=== PATIENT | female | born 1940 | race Caucasian/White ===

== ENCOUNTER 2018-01-05 10:47 | Day surgery (SDC) | payer OTHER, MEDICARE ==
[2018-01-05 11:32] LABS: Absolute Lymphocytes (CBC) 1.8 K/uL (0.7-4.9); Absolute Monocytes 0.4 K/uL (0.1-1.3); Absolute Neutrophil 4.4 K/uL (1.8-8.0); Basophils % 1.1 % (0-1.3); Eosinophils % 3.3 % (0-4.4); Hematocrit 42.3 % (36.0-45.0); Lymphocytes % 25.8 % (15.3-44.8); MCH 29.2 pg (27.0-35.0); MCV 88.1 fL (80-100); MPV 9.5 fL (7.6-11.3); Monocytes % 6.3 % (3.3-12.3)
--- NOTE | 2018-01-05 11:42 | RAD REPORT ---
EXAM DESCRIPTION: RAD - Chest Pa And Lat (2 Views) - 01/05/2018 11:30 am CLINICAL HISTORY: Flank pain COMPARISON: 02/02/2015, 10/03/2013 TECHNIQUE: PA and lateral views of the chest were obtained. FINDINGS: The lungs are hyperexpanded compatible with COPD. The heart is upper limit of normal in si ze. Aortic atherosclerosis. No fracture or aggressive bony process. IMPRESSION: COPD without acute process identified.
[2018-01-05 11:46] LABS: Protime INR 0.97
[2018-01-05 11:47] LABS: Potassium 4.5 mEq/L (3.6-5.0)
[2018-01-05] MEDS ORDERED: Ringers Lactate 1,000 ML IV ONE (11:57)
[2018-01-05] MEDS ORDERED: GENTAMICIN 80 MG/100 ML BAG 80 MG/100 ML BAG IV ONE (11:57)
[2018-01-05] MEDS ORDERED: LIDOCAINE 2% MPF 5 ML VIAL ONE (12:37)
[2018-01-05] MEDS ORDERED: PROPOFOL 200 MG/20 ML VIAL IV ONE (12:37)
[2018-01-05] MEDS ORDERED: FENTANYL CITR 100 MCG/2 ML ONE (12:37)
[2018-01-05] MEDS ORDERED: MIDAZOLAM HCL 2 MG/2 ML INJ ONE (12:37)
[2018-01-05] MEDS ORDERED: ONDANSETRON 4 MG/2 ML VIAL ONE (12:38)
[2018-01-05] MEDS ORDERED: METHYLPREDNISOLONE 125 MG INJ ONE (12:43)
[2018-01-05] MEDS ORDERED: DIPHENHYDRAMINE 50 MG/ML VIAL ONE (12:43)
--- NOTE | 2018-01-05 14:17 | RAD REPORT ---
EXAM DESCRIPTION: RAD - Urography Retrograde - 01/05/2018 2:05 pm CLINICAL HISTORY: Left-sided stent placement. COMPARISON: None. FINDINGS: Fluoroscopic imaging of the abdomen is submitted from left-sided stent placement attempt. Details of the procedure are not available.
--- NOTE | 2018-01-05 16:27 | EKG ---
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
[2018-01-05 16:55] VITALS: O2SAT 95
[2018-01-05 16:58] VITALS: BP 172/77; TEMP 97.2
== END 2018-01-05 15:30 | disposition home or self-care (01) ==
LOC: OR 10:47
PROVIDERS: ATTEND Urology
PROC: 0T778ZZ Dilation of Left Ureter, Via Natural or Artificial Opening Endoscopic (ICD-10-PCS; principal; 2018-01-05 13:00)
DX: N20.1 Calculus of ureter (principal); Q62.39 Other obstructive defects of renal pelvis and ureter; N32.81 Overactive bladder; N20.0 Calculus of kidney; I10 Essential (primary) hypertension; E78.00 Pure hypercholesterolemia, unspecified; J44.9 Chronic obstructive pulmonary disease, unspecified; M81.0 Age-related osteoporosis without current pathological fracture; I73.9 Peripheral vascular disease, unspecified; Z86.73 Personal history of transient ischemic attack (TIA), and cerebral infarction without residual deficits; Z87.891 Personal history of nicotine dependence; Z90.49 Acquired absence of other specified parts of digestive tract; Z90.710 Acquired absence of both cervix and uterus; Z88.6 Allergy status to analgesic agent; Z88.0 Allergy status to penicillin; Z88.3 Allergy status to other anti-infective agents; Z91.040 Latex allergy status; Z79.82 Long term (current) use of aspirin
CPT/HCPCS: 36415; 52344; 71046; 74420; 80048; 85025; 85610; 85730; 86850; 86900; 86901; 93005; J1580; J2405; J2930; J3010; Q9967; J2250

== ENCOUNTER 2018-09-20 11:52 | Emergency (ER) | payer OTHER, MEDICARE ==
--- NOTE | 2018-09-20 16:19 | ER ---
Nurse's Notes [facility] Name: Prema Massey Age: 78 yrs Sex: Female : 1940 Arrival Date: 09/20/2018 Time: 11:55 Bed 15 Private MD: Shelton Veliz V Diagnosis: Ankle Swelling s/p stent placement Presentation: 09/20 12:00 Presenting complaint: Patient states: my R foot and ankle is swollen and pain and in hj the back of my R knee; i had a stent procedure on R leg last Sep 17 at [facility] in [place]; reports pain on the site; 10/31;. Transition of care: patient was not received from another setting of care. Onset of symptoms was September 20, 2018. Risk Assessment: Do you want to hurt yourself or someone else? Patient reports no desire to harm self or others. Initial Sepsis Screen: Does the patient meet any 2 criteria? No. Patient's initial sepsis screen is negative. Does the patient have a suspected source of infection? No. Patient's initial sepsis screen is negative. Care prior to arrival: None. 12:00 Method Of Arrival: Ambulatory 12:00 Acuity: ANNALISA 4 hj Triage Assessment: 12:05 General: Appears in no apparent distress. uncomfortable, Behavior is calm, cooperative, hj appropriate for age. Pain: Complains of pain in right leg. Historical: - Allergies: 12:05 Sulfa (Sulfonamide Antibiotics); hj 12:05 Iodine; hj 12:05 Codeine; hj - Home Meds: 12:05 rosuvastatin 5 mg oral tab 1 tab once daily [Active]; losartan 100 mg oral tab 1 tab hj once daily [Active]; oxybutynin chloride 10 mg Oral tr24 1 tab once daily [Active]; potassium chloride 10 mEq Oral cpER 1 cap once daily [Active]; Spiriva with HandiHaler inhalation inhalation [Active]; - PMHx: 12:05 Hypertension; hj - PSHx: 12:05 stents in legs; Hysterectomy; Cholecystectomy; hj - Immunization history:: Adult Immunizations up to date. - Social history:: Smoking status: Patient/guardian denies using tobacco, Patient/guardian denies using alcohol. - Ebola Screening: : Patient negative for fever greater than or equal to 101.5 degrees Fahrenheit, and additional compatible Ebola Virus Disease symptoms Patient denies exposure to infectious person Patient denies travel to an Ebola-affected area in the 21 days before illness onset. Screenin:05 Abuse screen: Denies threats or abuse. Denies injuries from another. Nutritional hj screening: No deficits noted. Tuberculosis screening: No symptoms or risk factors identified. Fall Risk None identified. Assessment: 13:44 General: Appears in no apparent distress. uncomfortable, Behavior is calm, cooperative, jl7 appropriate for age. Pain: Complains of pain in right leg Pain currently is 2 out of 10 on a pain scale. Neuro: Level of Consciousness is awake, alert, obeys commands, Oriented to person, place, time, situation. Cardiovascular: Denies chest pain, Patient's skin is warm and dry. Pulses are palpable in right dorsalis pedis artery and left dorsalis pedis artery. Respiratory: Airway is patent Respiratory effort is even, unlabored, Respiratory pattern is regular, symmetrical, Denies shortness of breath. Derm: Skin is pink, warm \T\ dry. 15:12 Reassessment: Patient appears in no apparent distress at this time. No changes from jl7 previously documented assessment. Patient and/or family updated on plan of care and expected duration. Pain level reassessed. Patient is alert, oriented x 3, equal unlabored respirations, skin warm/dry/pink. Vital Signs: 12:05 BP 176 / 56; Pulse 95; Resp 18; Temp 97.9(TE); Pulse Ox 100% on R/A; Weight 48.99 kg; hj Height 5 ft. 3 in. (160.02 cm); Pain 2/10; 13:44 BP 132 / 81; Pulse 82; Resp 16 S; Pulse Ox 100% on R/A; Pain 2/10; jl7 15:12 BP 132 / 83; Pulse 85; Resp 16 S; Pulse Ox 98% on R/A; jl7 16:32 BP 128 / 58; Pulse 71; Resp 16 S; Pulse Ox 100% on R/A; jl7 12:05 Body Mass Index 19.13 (48.99 kg, 160.02 cm) ED Course: 11:55 Patient arrived in ED. mr 11:55 Shelton Veliz MD is Private Physician. mr 12:02 Triage completed. 12:05 Arm band placed on right wrist. hj 12:05 Patient has correct armband on for positive identification. Placed in gown. Bed in low hj position. Call light in reach. Side rails up X 1. 13:32 Vera Garcia FNP-C is [facility]. kb 13:32 Sourav Dietrich MD is Attending Physician. kb 13:36 Ben Rob, RN is Primary Nurse. jl7 14:41 US Extremity Venous Unilateral Ltd In Process Unspecified. EDMS 14:49 Ultrasound completed. Patient tolerated well. lc3 16:31 No provider procedures requiring assistance completed. Patient did not have IV access jl7 during this emergency room visit. Administered Medications: No medications were administered Outcome: 16:19 Discharge ordered by . kb 16:31 Discharged to home ambulatory. jl7 16:31 Condition: stable 16:31 Discharge instructions given to patient, Instructed on discharge instructions, follow up and referral plans. Demonstrated understanding of instructions, follow-up care. 16:35 Patient left the ED. jl7 Signatures: Dispatcher [employer] EDMO Vera Garcia FNP-C FNP-Miguel Angel GregorioCamille mr Cj Robbins, RN RN Jonathan Benitez [facility] Ben Rob, RN RN jl7 Corrections: (The following items were deleted from the chart) 12:08 12:05 Pulse 95bpm; Resp 18bpm; Pulse Ox 100% RA; Temp 97.9F Temporal; 48.99 kg; Height hj 5 ft. 3 in.; BMI: 19.1; Pain 2/10; hj
--- NOTE | 2018-09-20 16:19 | EDPHYS ---
Physician Documentation [facility] Name: Prema Massey Age: 78 yrs Sex: Female : 1940 Arrival Date: 09/20/2018 Time: 11:55 Bed 15 Private MD: Shelton Veliz V ED Physician Sourav Dietrich HPI: 09/20 16:03 This 78 yrs old Female presents to ER via Ambulatory with complaints of Leg kb Swelling, Leg Pain. 16:03 The patient presents with swelling. The complaints affect the right ankle. Onset: The kb symptoms/episode began/occurred 4 day(s) ago. Context: The problem was sustained at home, resulted from stent placed in right leg on 09/17 for arterial occlusion, The patient can fully bear weight on the affected extremity. the patient is able to ambulate. Associated signs and symptoms: Pertinent positives: swelling, Pertinent negatives: calf tenderness, fever, nausea, numbness, rash, tingling, vomiting, warmth, weakness. Modifying factors: The symptoms are alleviated by elevation of extremity, the symptoms are aggravated by nothing. Severity of symptoms: At their worst the symptoms were moderate, in the emergency department the symptoms are unchanged. The patient has not experienced similar symptoms in the past. The patient has been recently seen by a physician:. Historical: - Allergies: 12:05 Sulfa (Sulfonamide Antibiotics); hj 12:05 Iodine; hj 12:05 Codeine; hj - Home Meds: 12:05 rosuvastatin 5 mg oral tab 1 tab once daily [Active]; losartan 100 mg oral tab 1 tab hj once daily [Active]; oxybutynin chloride 10 mg Oral tr24 1 tab once daily [Active]; potassium chloride 10 mEq Oral cpER 1 cap once daily [Active]; Spiriva with HandiHaler inhalation inhalation [Active]; - PMHx: 12:05 Hypertension; hj - PSHx: 12:05 stents in legs; Hysterectomy; Cholecystectomy; hj - Immunization history:: Adult Immunizations up to date. - Social history:: Smoking status: Patient/guardian denies using tobacco, Patient/guardian denies using alcohol. - Ebola Screening: : Patient negative for fever greater than or equal to 101.5 degrees Fahrenheit, and additional compatible Ebola Virus Disease symptoms Patient denies exposure to infectious person Patient denies travel to an Ebola-affected area in the 21 days before illness onset. ROS: 16:01 Constitutional: Negative for fever, chills, and weight loss, Cardiovascular: Negative kb for chest pain, palpitations, and edema, Respiratory: Negative for shortness of breath, cough, wheezing, and pleuritic chest pain, Abdomen/GI: Negative for abdominal pain, nausea, vomiting, diarrhea, and constipation, Skin: Negative for injury, rash, and discoloration, Neuro: Negative for headache, weakness, numbness, tingling, and seizure. 16:01 MS/extremity: Positive for swelling, of the anterior aspect of right ankle. Exam: 16:01 Constitutional: This is a well developed, well nourished patient who is awake, alert, kb and in no acute distress. Head/Face: Normocephalic, atraumatic. Chest/axilla: Normal chest wall appearance and motion. Nontender with no deformity. No lesions are appreciated. Cardiovascular: Regular rate and rhythm with a normal S1 and S2. No gallops, murmurs, or rubs. Normal PMI, no JVD. No pulse deficits. Respiratory: Lungs have equal breath sounds bilaterally, clear to auscultation and percussion. No rales, rhonchi or wheezes noted. No increased work of breathing, no retractions or nasal flaring. Abdomen/GI: Soft, non-tender, with normal bowel sounds. No distension or tympany. No guarding or rebound. No evidence of tenderness throughout. Neuro: Awake and alert, GCS 15, oriented to person, place, time, and situation. Cranial nerves II-XII grossly intact. Motor strength 5/5 in all extremities. Sensory grossly intact. Cerebellar exam normal. Normal gait. 16:01 Musculoskeletal/extremity: Extremities: noted in the anterior aspect of right ankle: swelling, ROM: intact in all extremities, Circulation is intact in all extremities. Sensation intact. Weight bearing: able to fully bear weight. 16:01 Skin: Appearance: normal except for affected area, ecchymosis, noted on the, left femoral area, that are moderate. Vital Signs: 12:05 BP 176 / 56; Pulse 95; Resp 18; Temp 97.9(TE); Pulse Ox 100% on R/A; Weight 48.99 kg; hj Height 5 ft. 3 in. (160.02 cm); Pain 2/10; 13:44 BP 132 / 81; Pulse 82; Resp 16 S; Pulse Ox 100% on R/A; Pain 2/10; jl7 15:12 BP 132 / 83; Pulse 85; Resp 16 S; Pulse Ox 98% on R/A; jl7 16:32 BP 128 / 58; Pulse 71; Resp 16 S; Pulse Ox 100% on R/A; jl7 12:05 Body Mass Index 19.13 (48.99 kg, 160.02 cm) MDM: 13:33 Patient medically screened. kb 16:04 Data reviewed: vital signs, nurses notes. Data interpreted: Pulse oximetry: on room air kb is 98 %. Interpretation: normal. 16:17 Counseling: I had a detailed discussion with the patient and/or guardian regarding: the kb historical points, exam findings, and any diagnostic results supporting the discharge/admit diagnosis, radiology results, the need for outpatient follow up, a family practitioner, to return to the emergency department if symptoms worsen or persist or if there are any questions or concerns that arise at home. 09/20 13:36 Order name: US Extremity Venous Unilateral Ltd; Complete Time: 16:33 kb Administered Medications: No medications were administered Disposition: 09/21 15:48 Co-signature as Attending Physician, Sourav Dietrich MD I agree with the assessment and kdr plan of care. Disposition: 09/20/18 16:19 Discharged to Home. Impression: Ankle Swelling s/p stent placement. - Condition is Stable. - Discharge Instructions: Edema, [id number]. - Medication Reconciliation Form, Thank You Letter, Antibiotic Education, Prescription Opioid Use form. - Follow up: Emergency Department; When: As needed; Reason: Worsening of condition. Follow up: Private Physician; When: 2 - 3 days; Reason: Recheck today's complaints, Continuance of care, Re-evaluation by your physician. Signatures: Dispatcher [employer] EDMS Vera Garcia, BANKRUPTCY PARALEGAL-C BANKRUPTCY PARALEGAL-Sourav Oliavrez MD MD [facility] Cj Robbins RN RN hj Leal, Jahala, RN RN jl7 Corrections: (The following items were deleted from the chart) 09/20 16:35 16:19 09/20/2018 16:19 Discharged to Home. Impression: Ankle Swelling s/p stent jl7 placement. Condition is Stable. Forms are Medication Reconciliation Form, Thank You Letter, Antibiotic Education, Prescription Opioid Use. Follow up: Emergency Department; When: As needed; Reason: Worsening of condition. Follow up: Private Physician; When: 2 - 3 days; Reason: Recheck today's complaints, Continuance of care, Re-evaluation by your physician. kb
--- NOTE | 2018-09-20 16:30 | RAD REPORT ---
EXAM DESCRIPTION: US - Extremity Venous Uni Ltd - 09/20/2018 2:41 pm CLINICAL HISTORY: Right leg pain and swelling Preliminary findings provided at the time of the study. COMPARISON: None. TECHNIQUE: Real-time sonographic evaluation of the right lower extremity deep venous systems was per formed. FINDINGS: Normal compressibility, flow augmentation, phasic flow and spontaneous flow are identified in the right lower extremity common femoral, superficial femoral, popliteal and posterior tibial vei ns. No intraluminal filling defects seen. IMPRESSION: No DVT in the right lower extremity.
[2018-09-20 16:49] VITALS: TEMP 97.9
[2018-09-20 16:53] VITALS: BP 128/58; O2SAT 100
== END 2018-09-20 16:35 | disposition home or self-care (01) ==
LOC: ER 11:52
DX: M25.471 Effusion, right ankle (principal); I10 Essential (primary) hypertension; Z88.2 Allergy status to sulfonamides; Z88.5 Allergy status to narcotic agent; Z91.048 Other nonmedicinal substance allergy status
CPT/HCPCS: 93971; 99283

== ENCOUNTER 2019-05-20 06:28 | Day surgery (SDC) | payer OTHER, MEDICARE ==
--- NOTE | 2019-05-18 09:13 | RAD REPORT ---
EXAM DESCRIPTION: Diony Urbina And Lat (2 Views)05/18/2019 9:01 am CLINICAL HISTORY: Hypertension/preop exam for vein surgery COMPARISON: December 2017 FINDINGS: 13 millimeter nodular opacity right upper lobe. Remaining lungs appear clear of acute infiltrate. The lungs are moderately hyperaerated. Heart is nor mal size. Calcification of the mitral annulus is noted IMPRESSION: COPD 13 millimeter nodular opacity right upper lobe may represent a pulmonary nodule. CT chest recommende d
[2019-05-18 09:55] LABS: Absolute Lymphocytes (CBC) 1.5 K/uL (0.7-4.9); Basophils % 1.2 % (0-1.3); Hematocrit 41.6 % (36.0-45.0); Lymphocytes % 25.2 % (15.3-44.8); RBC Red Blood Cell Count 4.67 M/uL (3.86-4.86)
[2019-05-18 10:07] LABS: Potassium 4.5 mmol/L (3.5-5.1)
[2019-05-20] MEDS ORDERED: CEFAZOLIN/SWI 1gm 1 GM/10 ML SYR ONE (06:50)
[2019-05-20] MEDS ORDERED: Ringers Lactate 1,000 ML IV ONE (06:50)
[2019-05-20] MEDS ORDERED: PROPOFOL 200 MG/20 ML VIAL IV ONE (07:15)
[2019-05-20] MEDS ORDERED: FENTANYL CITR 100 MCG/2 ML ONE (07:15)
[2019-05-20] MEDS ORDERED: MIDAZOLAM HCL 2 MG/2 ML INJ ONE (07:16)
[2019-05-20] MEDS ORDERED: LIDOCAINE 1% MPF 5 ML VIAL ONE (07:16)
[2019-05-20] MEDS ORDERED: Phenylephrine HCl 10 MG/ML 1 ML VIAL ONE (07:46)
[2019-05-20] MEDS ORDERED: NS 0.9% VIAL 10 ML ONE (07:46)
[2019-05-20] MEDS ORDERED: KETOROLAC 30 MG/ML INJ ONE (07:54)
[2019-05-20] MEDS ORDERED: ONDANSETRON 4 MG/2 ML VIAL ONE (07:54)
[2019-05-20 09:31] VITALS: TEMP 97.7
[2019-05-20 10:26] VITALS: BP 124/74; O2SAT 94
--- NOTE | 2019-05-20 20:44 | OP ---
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 Postoperative Diagnosis: Left leg squamous cell carcinoma. Procedure: Wide excision, left leg squamous cell carcinoma 6 x 2 cm with layered closure. Length of closure 6 cm. Estimated Blood Loss: Minimal. Specimen: Left leg squamous cell carcinoma. Findings: Margins free. Anesthesia: General. Complications: None. Disposition: The patient tolerated the procedure in stable condition, taken to Recovery in good gene ral condition. Procedure In Detail: The patient was brought to the OR and placed in supine position. General anest hesia begun. Patient was prepped and draped in the usual sterile fashion. Marcaine 0.5% was infiltr ated locally. A 15-blade was used to make a 6 x 2 cm incision to include this 1.75 cm red lesion wit h a scab in the middle consistent with the biopsy site and squamous cell carcinoma. This proceeded d own through the subcutaneous tissue. The entire specimen excised and then labeled appropriately and sent for frozen section which revealed squamous cell carcinoma. Margins free. Wound irrigated, blee ding controlled with cautery. Flaps created and then 2-0 chromic used to approximate the subcutaneou s tissue and 3-0 nylon used to close skin. Sterile dressing was applied. The patient was awakened a nd taken to Recovery in good general condition. Discharge Note: Patient will go to Day Surgery and home when stable. Disposition: Home. Condition: Stable. Discharge Instructions: Resume home medications and diet. Activity as tolerated. No heavy lifting. Keep dressing clean and dry. Sponge bathe only. Follow up in my office in 1 week. Call for appoi ntment. Ultracet 1 tablet p.o. q.4 p.r.n. pain. Patient will have a CT of the chest with IV contras t and we will premedicate her with prednisone and Benadryl prior to the office visit. /MODL Voice ID: [id number] Report ID: [id number]
--- NOTE | 2019-05-22 08:12 | EKG ---
Test Date: 2019-05-20 Test Time: 07:21:41 Laundry Pricing Clerk: BELA MEASUREMENT RESULTS: Intervals: Rate: 89 TX: 136 QRSD: 78 QT: 358 QTc: 435 [place]: P: 78 TX: 136 QRS: 66 T: 66 INTERPRETIVE STATEMENTS: Normal sinus rhythm Biatrial enlargement Left ventricular hypertrophy ST abnormality, possible digitalis effect Abnormal ECG Compared to ECG 01/05/2018 11:29:04 ST (T wave) deviation now present Electronically Signed On 05-22-19 08:07:43 CDT by Denys Wiseman
== END 2019-05-20 10:15 | disposition home or self-care (01) ==
LOC: OR 06:28
PROVIDERS: ATTEND Surgery
PROC: 0HBLXZZ Excision of Left Lower Leg Skin, External Approach (ICD-10-PCS; principal; 2019-05-20 07:30)
DX: C44.729 Squamous cell carcinoma of skin of left lower limb, including hip (principal); I10 Essential (primary) hypertension; I25.10 Atherosclerotic heart disease of native coronary artery without angina pectoris; J44.9 Chronic obstructive pulmonary disease, unspecified; Z87.891 Personal history of nicotine dependence; Z86.73 Personal history of transient ischemic attack (TIA), and cerebral infarction without residual deficits; Z88.6 Allergy status to analgesic agent; Z88.2 Allergy status to sulfonamides; Z88.3 Allergy status to other anti-infective agents; Z91.040 Latex allergy status; Z80.41 Family history of malignant neoplasm of ovary
CPT/HCPCS: 93005; 85025; 80048; 36415; 88331; 88332; 88305; 71046; 11606; J2704; J2370; J3010; J0690; J2405; J2250

== ENCOUNTER 2021-03-18 02:40 | Emergency (ER) | payer OTHER ==
--- OUTSIDE RECORDS SUMMARY | 2021-03-18 02:44 | XMS REPORT | Continuity of Care Document ---
:1940 Author Organization [facility] t Address [address] [place] [address] Care Team Providers Name Role Phone Rambo RAMIREZ Primary Care Physician Unavailable SYSTEM, NOT IN Attending Clinician Unavailable Rambo RAMIREZ Attending Clinician Unavailable Rambo Velasquez MD Attending Clinician Stevie Schofield MD Attending Clinician Senait Nuñez MD Attending Clinician Vaughn Edwards NP Attending Clinician Malcolm MORRIS Attending Clinician Agus Olea MD Attending Clinician MD AGUS OLEA Attending Clinician Unavailable Loy VALENZUELA Attending Clinician Unavailable Maurizio ACE Attending Clinician Unavailable Dontrell RN Attending Clinician Unavailable Bushra VALENUZELA Attending Clinician Unavailable Trevor MORRIS Attending Clinician Azucena ACE Attending Clinician Unavailable Jake MORRIS, Y.H. Attending Clinician MD JAKE Y.H. Attending Clinician Unavailable Magali Camarena NP Attending Clinician Rambo De La Fuente MD Attending Clinician New Angulo MD Attending Clinician MD NEW ANGULO Attending Clinician Unavailable Sergey Attending Clinician Unavailable Michael Marrero RN Attending Clinician Unavailable Bret ACE Attending Clinician Unavailable Provider Attending Clinician Bautista ACE Attending Clinician Unavailable Rambo Ramirez MD Attending Clinician Emmanuel VALENZUELA, G Attending Clinician Unavailable EVA Admitting Clinician Unavailable MD AGUS OLEA Admitting Clinician Unavailable MD Mark STANLEYHKaci Admitting Clinician Unavailable LEISA Admitting Clinician Unavailable MD Rambo DE LA FUENTE Admitting Clinician Unavailable Payers Payer Name Policy Type Policy Number Effective Date Expiration Date Miguel Angel daniel MEDICARE PART A [id number] 2007 AND B 00:00:00 AARP-SECONDARY [id number] 2008 ONLY 00:00:00 UHC MEDICAREUHC [id number] 2020 [place] GROUP MEDICARE 00:00:00 Shinto [id number]-[id number] Problems Condition Condition Condition Status Onset Resolution Last Treating Co mments Source Name Details Category Date Date Treatment Clinician Date Emphysema Emphysema Disease Active Ragini ston of lung of lung 4-23 Methodi 00:00: st 00 Nonrheumat Nonrheumat Disease Active Overview : [place]ulu ic aortic ic aortic 3-23 Formattin M ethodi valve valve 00:00: g of this st stenosis stenosis 00 note might be different from the original. Added automatic ally from request for surgery [id number] Peripheral Peripheral Disease Active H kathy vascular vascular 3-11 Method i disease disease 00:00: st 00 Critical Critical Disease Active [place] on aortic aortic 3-11 Methodi valve valve 00:00: st stenosis stenosis 00 Malignant Malignant Disease Active 2019-09 Overview: [place]ulu neoplasm neoplasm 1-12 Formattin Met hodi of lower of lower 00:00: g of this st lobe of lobe of 00 note right lung right lung might be different from the original. Added automatic ally from request for surgery [id number] Pneumothor Pneumothor Disease Active 2019-09 H kathy ax after ax after 0-30 Method i biopsy biopsy 00:00: st 00 Right Right Disease Active 2019-09 Lulu lower lobe lower lobe 0-29 Me thodi lung mass lung mass 00:00: st 00 Estrogen Estrogen Disease Active Overview: receptor receptor 2-11 Formattin And erso positive positive 00:00: g of this n status status 00 note (ER+) (ER+) might be different from the original. 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 Dr. Martinez Caputo Allergies, Adverse Reactions, Alerts Allergy Allergy Status Severity Reaction(s) Onset Inactive Treating Comm ents Source Name Type Date Date Clinician Bacitrac Propensi Active GI 2018-09 Severe [place] in ty to Intolerance 0-17 rash/peel Me thodi adverse 00:00: ing/burni st reaction 00 ng s to drug Bacitrac Propensi Active GI 2018-09 Severe [place] in-Polym ty to Intolerance 0-17 rash/peel Methodi yxin B adverse 00:00: ing/burni st reaction 00 ng s to drug Latex, Propensi Active Itching, "raw [place] Natural ty to Other (See 5-21 skin" Metho di Rubber adverse Comments) 00:00: st reaction 00 s to drug Codeine Propensi Active Anaphylaxis, 2017 [place] ty to Hives 1-20 Methodi adverse 00:00: st reaction 00 s to drug Iodinate Propensi Active Anaphylaxis, 2016-09 [place] d ty to Hives 1-20 Methodi Contrast adverse 00:00: st Media reaction 00 s to drug Family History Family Member Diagnosis Comments Start Date Stop Date Source Natural father Other MD Hemanth robertson Maternal aunt -Unknown cancer And erson Maternal aunt -Breast cancer Andrés rson Natural mother Ovarian cancer And erson Paternal aunt Skin cancer MD Hemanth robertson Paternal grandfather Coronary artery Vince disease Social History Social Habit Start Date Stop Date Quantity Comments [facility] Std Drinks History SDOH [place] Meth odist Alcohol Binge Cigarettes smoked 2021-02-22 2021-02-22 Fernando Booker current (pack per 00:00:00 00:00:00 day) - Reported Cigarette 2021-02-22 2021-02-22 Fernando Garvey ist pack-years 00:00:00 00:00:00 Tobacco use and 2021-02-22 2021-02-22 Never used Fernando Vivas ethodist exposure 00:00:00 00:00:00 Alcohol intake 2021-02-22 2021-02-22 Ex-drinker Fernando Palomares thodist 00:00:00 00:00:00 (finding) History SDOH 2020-08-02 2020-08-02 1 Fernando Valera odist Alcohol Frequency 00:00:00 00:00:00 Tobacco Comment 2017-08-10 2017-08-10 quit 2009 MD Paiz on 00:00:00 00:00:00 History of tobacco 1961-09-21 2008-12-16 Current smoker Seymour mello Shinto use 00:00:00 00:00:00 [birth year] Fernando dubois 00:00:00 00:00:00 Smoking Status Start Date Stop Date Source Former smoker 2021-02-22 00:00:00 2021-02-22 00:00:00 Fernando Booker Medications Ordered Filled Start Stop Current Ordering Indication Dosage Frequency Signature Comments Components Source Medication Medication Date Date Medication? Clinician (SIG) Name Name aspirin 162mg Take 2 [place] (ECOTRIN) -26 05-26 tablets Method i 81 MG 00:00: 23:59 ([address] enteric 00 :00 total) by coated mouth tablet Every Thursday, Thursday, and Thursday for 30 days. aspirin No 81mg Take 81 mg Ragini ston (ECOTRIN) 4-24 04-24 by mouth. Meth janett 81 MG 12:08: 00:[address] enteric 08 :00 week coated (M/W/F) tablet albuterol 2021-0 2021- No 2{puff} Q6H Inhale 2 [place]ulu (PROAIR 4-24 04-24 puffs Methodi HFA) 90 12:08: 00:[address] mcg/actuati 08 :00 (six) on inhaler hours as needed. turmeric Yes [place]ulu (CURCUMIN 4-24 Methodi MISC) 12:08: st 04 phenylephri Yes Take by Ragini de luna ne 4-24 mouth. Methodi HCl/acetami 12:08: st nophn 04 (DAYTIME SINUS ORAL) Lactobac Yes Take by Becca robertson no.41/Bifid 4-24 mouth. Method i obact no.7 12:08: st (PROBIOTIC- 04 10 ORAL) calcium Yes QD Take by Fernando carb/vitami 4-24 mouth Alex n D3/vit K1 12:08: daily. st (VIACTIV 04 ORAL) vit A-vit Yes Take by Rosalinda on C-vit 4-24 mouth. Methodi E-zinc-stan 12:08: st er (EYE 04 VITAMIN AND MINERALS) 7,160-113-1 00 unit-mg-uni t tablet rosuvastati 2020- No 5mg QD Take 1 Ragini annamarie n (CRESTOR) -24 05-24 tablet (5 Me thodi 5 mg tablet 00:00: 23:59 mg total) st 00 :00 by mouth nightly for 30 days. isosorbide 2020- No 30mg QD Take 1 [place] mononitrate 24 05-24 tablet (30 M ethodi (IMDUR) 30 00:00: 23:59 mg total) s t MG 24 hr 00 :00 by mouth tablet daily for 30 days. nitroglycer 2020- No .4mg Place 1 [place] in -24 05-24 tablet Methodi (Nitrostat) 00:00: 23:59 (0.[address] 0.4 MG SL 00 :00 total) tablet under the tongue every 5 (five) minutes as needed for chest pain for up to 30 days. predniSONE 0 202- No 40mg QD Take 2 [place] (DELTASONE) 3-12 03-14 tablets Meth janett 20 mg 00:00: 23:59 ([address] tablet 00 :00 total) by mouth daily for 2 doses. Take 2 tablets (40 mg) by mouth at 9 pm the night prior to CT Scan and take 2 tablets (40 mg) by mouth [address] Scan. umeclidiniu 2020- No Inhale. Seymour mello m-vilantero 3-11 03-11 Methodi l (ANORO 15:53: 00:00 st ELLIPTA) 55 :00 62.5-25 mcg/actuati on blister with device diosmin 2019-09- No Take by [place] complex 0-08 10-08 mouth. Methodi no.1 10:58: 00:00 st (VASCULERA) 35 :00 630 mg tablet Prolia 60 2019-09- No King mg/mL 006-28 Methodi syringe 00:00: 00:00 st syringe 00 :00 Trelegy 2019-0 Yes King Ellipta 9-03 Methodi 100-62.5-25 00:00: st mcg blister 00 with device powder for inhalation losartan 2020- No 100mg QD 100 mg [place] (COZAAR) 04-1711 daily. Methodi 100 MG 00:00: 00:00 st tablet 00 :00 fluticasone 2019- Yes 1{puff} Inhale 1 MD /umeclidin/ 7-13 puff by Josh so vilanter 17:04: mouth n (TRELEGY 02 daily. ELLIPTA INHALATION) clopidogrel 2019-0 Yes 75mg Take 75 mg MD (PLAVIX) 75 7-13 by mouth Andrés rso mg tablet 17:04: daily. n 02 b complex 2020-0 Yes 1{tbl} Take 1 MD vitamins 7-13 tablet by Chencho o tablet 17:03: mouth n 04 daily. TURMERIC 2020-0 Yes 500mg 500 mg by MD (CURCUMIN 7-13 miscellane Andrés rso MISC) 17:03: ous route n 04 daily. HORSE 2020-0 Yes 400mg Take 400 MD CHESTNUT 7-13 mg by Anderso SEED (HORSE 17:03: mouth n CHESTNUT 04 daily. ORAL) aspirin 81 2020-0 Yes 81mg Take 81 mg M D mg EC 7-13 by mouth 2 Anderso tablet 17:03: (two) n 04 times a week MTH. Lactobacill 2020-0 Yes 1{capsu Take 1 M D us 7-13 le} capsule by Anderssenia rhamnosus 17:03: mouth n GG 04 daily. (CULTURELLE ) 10 billion cell capsule CALCIUM 2020-0 Yes 1{tbl} Take 1 MD CARB/VITAMI 7-13 tablet by And erso N D3/VIT K1 17:03: mouth n (VIACTIV 04 twice ORAL) daily. acetaminoph 2020-0 Yes 500mg Take 500 M D en (TYLENOL 7-13 mg by Anderso EXTRA 17:03: mouth as n STRENGTH) 04 needed for 500 mg mild pain. tablet vitamins 2020-0 Yes 1{capsu Take 1 MD A,C,E-zinc- 7-13 le} capsule by An derso copper 17:03: mouth n (ICAPS 04 twice AREDS) daily. 14,320-226- 200 unit-mg-uni t cap UNABLE TO 2020-0 Yes 1{capsu Take 1 MD FIND 7-13 le} capsule by Anderso 17:03: mouth n 04 daily. Multi-prob iotic sinus support UNABLE TO 2020-0 2020- No 2{capsu Take 2 MD FIND 7-13 07-13 le} capsules Anderso 17:03: 00:00 by mouth n 00 :00 daily. Mitochondr ial Energy Booster (obtained form PCP) olmesartan 2018-09 2020- No 40mg QD Take 40 mg King (BENICAR) 0-15 10-08 by mouth Metho di 40 MG 00:00: 00:[address] tablet 00 :00 amLODIPine 2018-09 2020- No [place] (NORVASC) 0-09 10-08 Methodi 2.5 mg 00:00: 00:00 st tablet 00 :00 escitalopra 2019- Yes 10mg QD Take 10 mg King m (LEXAPRO) 9-27 by mouth Meth janett 10 MG 00:00: daily. st tablet 00 MYRBETRIQ Yes 50mg Take 50 mg MD 50 mg Tb24 9-17 by mouth Josh so 00:00: daily. n 00 MYRBETRIQ 2019- Yes 50mg QD 50 mg King 50 mg 9-17 daily. Methodi tablet 00:00: st extended 00 release 24 hr ANORO 2019- No 1{puff} Inhale 1 MD ELLIPTA 06-02-13 puff by Anderso 62.5-25 00:00: 00:00 mouth n mcg/actuati 00 :00 daily. on dsdv clopidogrel 2020- No 75mg QD Take 75 mg King (PLAVIX) 75 05-2724 by mouth Met hodi mg tablet 00:00: 00:[address] 00 :00 escitalopra 2019- No 10mg Take 10 mg MD m (LEXAPRO) 05-27 by mouth And erso 10 mg 00:00: 00:00 daily. n tablet 00 :00 amLODIPine Yes 2.5mg Take 2.5 MD (NORVASC) 7-15 mg by Anderso 2.5 mg 00:00: mouth n tablet 00 daily. losartan Yes 100mg Take 100 MD (COZAAR) 1-14 mg by Anderso 100 mg 00:00: mouth n tablet 00 daily. fluocinolon 2016-09 Yes 1[drp] Administer MD e acetonide 0-23 1 drop Chencho o oil 0.01 % 00:00: into ears n drop 00 as needed. SPIRIVA 2019- No 1{puff} Inhale 1 MD WITH 06-18-13 puff by Andcalos HANDIHALER 00:00: 00:00 mouth as n 18 mcg 00 :00 needed. inhalation capsule rosuvastati 2020- No 1{tbl} Take 1 [place] n (CRESTOR) 06-1624 tablet by Me thodi 5 MG tablet 00:00: 00:[address] 00 :00 rosuvastati 2019- No 1{tbl} Take 1 M D n (CRESTOR) 06-16-13 tablet by An derso 5 mg tablet 00:00: 00:00 mouth 2 n 00 :00 (two) times a week MTH. potassium Yes 1{tbl} Take 1 MD chloride 8-29 tablet by Chencho o (K-DUR,KLOR 00:00: mouth n -CON M) 10 00 twice mEq tablet daily. PROAIR HFA Yes 1{puff} Inhale 1 MD 90 8-01 puff by Anderso mcg/actuati 00:00: mouth as n on inhaler 00 needed. Immunizations Ordered Immunization Filled Immunization Date Status Commen ts Source Name Name PABLO SADLERID-Sixto 2020-10-26 Completed [place] MRNA VACCINATION 00:00:00 Methodmadonna SHAH COVID-19 2020-09-28 Completed [place] MRNA VACCINATION 00:00:00 [place] ana FLUZONE HIGH-DOSE PF 2020-07-20 Completed [place] 00:00:00 Shinto Vital Signs Vital Name Observation Time Observation Value Comments Source Heart rate 2021-01-12 09:42:00 84 /min Fernando Booker Respiratory rate 2021-01-12 09:42:00 20 /min Ilene Booker Oxygen saturation in 2021-01-12 09:42:00 95 /min Fernando Booker Arterial blood by Pulse oximetry Systolic blood 2021-01-12 07:17:13 101 mm[Hg] [place] Shinto pressure Diastolic blood 2021-01-12 07:17:13 60 mm[Hg] [place] on Shinto pressure Body temperature 2021-01-12 07:17:13 37 Azra Ilene Booker Body weight 2021-01-10 05:00:00 51.347 kg Fernando Booker BMI 2021-01-10 05:00:00 20.06 kg/m2 Fernando Booker Body height 2021-01-01 09:30:00 160 cm Fernando Booker Procedures Procedure Date / Time Performing Clinician Source Performed HC COMPLETE BLD COUNT 2021-01-10 04:30:00 Lara Chery W/AUTO DIFF BASIC METABOLIC PANEL 2021-01-10 04:00:00 Lara Chery TROPONIN 2021-01-10 04:00:00 Lara Chery ethodist MAGNESIUM LEVEL 2021-01-10 04:00:00 Lara Chery ethodist PHOSPHORUS LEVEL 2021-01-10 04:00:00 Lara Chery ESTIMATED GFR 2021-01-10 04:00:00 Lara Chery ethodist ECG 12-LEAD 2021-01-09 23:41:28 Stevie Velasquez TROPONIN 2021-01-05 02:12:00 Rony Chua ethodist HC COMPLETE BLD COUNT 2021-01-05 02:12:00 Stevie Velasquez on Shinto W/AUTO DIFF COMPREHENSIVE METABOLIC 2021-01-05 02:12:00 Stevie Velasquez Shinto PANEL ESTIMATED GFR 2021-01-05 02:12:00 Anatoliy Gage Edward ECG 12-LEAD 2021-01-05 01:53:31 Rony Chuast US SOFT TISSUE HEAD NECK 2021-01-03 14:52:50 Angélica Valencia Shinto CV TAVR FOR CARDIOLOGY 2021-01-01 11:54:10 Salomón Schofield Shinto TYPE AND SCREEN 2021-01-01 05:00:00 Marija Patel Domonique BASIC METABOLIC PANEL 2021-01-01 05:00:00 Stevie Velasquez on Shinto CBC HEMOGRAM 2021-01-01 05:00:00 Stevie Velasquez Met hodist ESTIMATED GFR 2021-01-01 05:00:00 Stevie Velasquez Met hodist PREPARE RBC 2021-01-01 05:00:00 Marija Patel Domonique ACTIVATED CLOTTING TIME 2020-12-31 18:42:00 Stevie Velasquez Shinto CATH ABORTED PROCEDURE 2020-12-31 18:38:39 Susana Gonzalez on Shinto CV ANGIOGRAM EXTREMITY 2020-12-31 18:38:39 Susana Gonzalez on Shinto UNILATERAL SPIROMETRY PRE AND POST 2020-12-31 14:15:45 Harvinder León WITH BRONCHILATOR, DIFFUSION, LUNG VOLUMES US ANKLE BRACHIAL INDEX 2020-12-31 10:32:00 Susana Gonzalez US DUPLEX ARTERIAL LOWER 2020-12-31 10:16:00 Susana Gonzalez EXTREMITY BILATERAL US CAROTID DUPLEX 2020-12-31 09:00:00 Susana Gonzalez Al thodist BILATERAL B NATRIURETIC PEPTIDE 2020-12-31 04:58:00 Stevie Velasquez on Shinto BASIC METABOLIC PANEL 2020-12-31 04:00:00 Stevie Velasquez on Shinto MAGNESIUM LEVEL 2020-12-31 04:00:00 Stevie Velasquez Met hodist ESTIMATED GFR 2020-12-31 04:00:00 Stevie Velasquez Met hodist BASIC METABOLIC PANEL 2020-12-30 04:45:00 Stevie Velasquez on Shinto B NATRIURETIC PEPTIDE 2020-12-30 04:45:00 Stevie Velasquez on Shinto MAGNESIUM LEVEL 2020-12-30 04:45:00 Stevie Velasquez Met hodist TROPONIN 2020-12-30 04:45:00 Stevie Velasquez Met hodist ESTIMATED GFR 2020-12-30 04:45:00 Stevie Velasquez Met hodist TROPONIN 2020-12-29 11:47:00 Stevie Velasquez Met hodist ECG 12-LEAD 2020-12-29 10:42:28 Salomón Schofield n Shinto B NATRIURETIC PEPTIDE 2020-12-29 04:50:00 Stevie Velasquez on Shinto HC COMPLETE BLD COUNT 2020-12-29 04:50:00 Stevie Velasquez on Shinto W/AUTO DIFF BASIC METABOLIC PANEL 2020-12-29 04:00:00 Stevie Velasquez on Shinto MAGNESIUM LEVEL 2020-12-29 04:00:00 Stevie Velasquez Met hodist ESTIMATED GFR 2020-12-29 04:00:00 Stevie Velasquez Met hodist XR CHEST 1 VW PORTABLE 2020-12-28 15:59:22 Stevie Velasquez Shinto HC COMPLETE BLD COUNT 2020-12-28 15:03:00 Stevie Velasquez on Shinto W/AUTO DIFF B NATRIURETIC PEPTIDE 2020-12-28 15:03:00 Stevie Velasquez on Shinto CREATINE KINASE, TOTAL 2020-12-28 15:03:00 Stevie Velasquez Shinto (CPK) COMPREHENSIVE METABOLIC 2020-12-28 15:03:00 Stevie Velasquez Shinto PANEL HEMOGLOBIN A1C 2020-12-28 15:03:00 Stevie Velasquez Met hodist LIPID PANEL 2020-12-28 15:03:00 Stevie Velasquez Met hodist MAGNESIUM LEVEL 2020-12-28 15:03:00 Stevie Velasquez Met hodist PREALBUMIN LEVEL 2020-12-28 15:03:00 Stevie Velasquez Me thodist URIC ACID LEVEL 2020-12-28 15:03:00 Stevie Velasquez Met hodist T4, FREE 2020-12-28 15:03:00 Stevie Velasquez Met hodist THYROID STIMULATING 2020-12-28 15:03:00 Stevie Velasquez Shinto HORMONE ESTIMATED GFR 2020-12-28 15:03:00 Stevie Velasquez Met hodist TROPONIN 2020-12-28 15:03:00 Stevie Velasquez Met hodist TYPE AND SCREEN 2020-12-28 10:30:00 Blossom Olea Met dorina Goldsmith PROTHROMBIN TIME WITH INR 2020-12-28 10:30:00 Blossom Olea PARTIAL THROMBOPLASTIN 2020-12-28 10:30:00 Blossom Olea TIME (PTT) Agus HEMOGLOBIN A1C 2020-12-28 10:30:00 Blossom Olea Met dorina Goldsmith COMPREHENSIVE METABOLIC 2020-12-28 10:30:00 Blossom Olea Shintogloria Goldsmith HC COMPLETE BLD COUNT 2020-12-28 10:30:00 Blossom Olea on Shinto W/AUTO DIFF Agus B NATRIURETIC PEPTIDE 2020-12-28 10:30:00 Blossom Olea on Jhony Goldsmith ESTIMATED GFR 2020-12-28 10:30:00 Blossom Olea Met dorina Goldsmith COVID-19 QUALITATIVE PCR 2020-12-28 10:15:00 Blossom Olea CV CTA TAVR WORKUP (CTA 2020-12-05 14:09:43 Blossom Olea CORONARY,CTA THORACIC Agus AORTA,CTA ABDOMEN PELVIS) W CONTRAST POC CREATININE 2020-12-05 13:28:00 Blossom Olea King Met dorina Goldsmith ESTIMATED GFR 2020-12-05 13:28:00 Blossom Olea King Met dorina Goldsmith ECG 12-LEAD 2020-11-29 16:54:18 Salomón Schofield Shinto TTE COMPLETE, W CONTRAST, 2020-11-29 15:08:46 Salomón Schofield Shinto W DOPPLER ([id number]) CT CHEST EXTERNAL STUDY 2020-11-26 11:02:[address] CHEST EXTERNAL STUDY 2020-08-28 13:37:00 Melvin Salazar ECG 12-LEAD 2020-08-10 10:24:29 Evan Stanley Me thodist HC COMPLETE BLD COUNT 2020-08-10 10:23:00 Evan Stanley Shinto W/AUTO DIFF PARTIAL THROMBOPLASTIN 2020-08-10 10:23:00 Evan Stanley TIME (PTT) PROTHROMBIN TIME WITH INR 2020-08-10 10:23:00 Evan Stanley TYPE AND SCREEN 2020-08-10 10:23:00 Evan Stanley Al thodist COVID-19 QUALITATIVE PCR 2020-08-10 10:20:00 Evan Stanley COMPREHENSIVE METABOLIC 2020-08-10 10:05:00 Evan Stanley PANEL ESTIMATED GFR 2020-08-10 10:05:00 Evan Stanley Me thodist XR CHEST 1 VW PORTABLE 2020-07-21 11:18:42 Juan Carter William XR CHEST 1 VW PORTABLE 2020-07-21 07:23:33 Sharon Angulo BASIC METABOLIC PANEL 2020-07-21 04:00:00 Sharon Angulo Shinto ESTIMATED GFR 2020-07-21 04:00:00 Sharon Angulo M ethodist XR CHEST 1 VW PORTABLE 2020-07-20 16:02:58 Neel Salinas XR CHEST 1 VW PORTABLE 2020-07-20 09:00:00 SariahSharon New Booker XR CHEST 1 VW PORTABLE 2020-07-19 23:42:34 Neel Salinas COVID-19 QUALITATIVE PCR 2020-07-19 18:37:00 Sariah Sharon New Booker SURGICAL PATHOLOGY 2020-07-19 18:05:00 Aaron De La Fuente ethodist REQUEST HC COMPLETE BLD COUNT 2020-07-19 18:00:00 SariahSharon New Booker W/AUTO DIFF BASIC METABOLIC PANEL 2020-07-19 17:50:00 SariahSharon New Booker ESTIMATED GFR 2020-07-19 17:50:00 SariahSharon [facility] ethodist SURGICAL PATHOLOGY 2020-07-19 17:05:00 Aaron De La Fuente ethodist REQUEST CT NEEDLE BIOPSY NO 2020-07-19 15:05:00 Evan Stanley CONTRAST CYTOLOGY 2020-07-19 13:54:00 Evan Stanley Al thodist (NON-GYNECOLOGICAL) REQUEST COVID-19 QUALITATIVE PCR 2020-07-16 12:59:00 Evan Stanley HC COMPLETE BLD COUNT 2020-06-28 12:10:00 Evan Stanley W/AUTO DIFF COMPREHENSIVE METABOLIC 2020-06-28 12:10:00 Evan Stanley PANEL PARTIAL THROMBOPLASTIN 2020-06-28 12:10:00 Evan Stanley TIME (PTT) PROTHROMBIN TIME WITH INR 2020-06-28 12:10:00 Evan Stanley ESTIMATED GFR 2020-06-28 12:10:00 Evan Stanley Me thodist PET CT WHOLE BODY 2020-06-21 09:28:00 Evan Stanley EXTERNAL STUDY PET CT SKULL BASE TO MID 2020-06-21 00:00:[address] CHEST EXTERNAL STUDY 2020-06-04 09:49:[address] CHEST WO CONTRAST 2020-06-04 00:00:00 ProviderScott OSI US BREAST 2020-04-02 15:55:47 CheckCristy cantrell MD Josh son OSI MAMMO BILATERAL 2020-04-02 15:55:18 CheckCristy cantrell MDrssanchez Plan of Care Planned Activity Planned Date Details Comments Source Future Scheduled 2021-04-21 INFLUENZA VACCINE Becca robertson Shinto Test 00:00:00 [code = INFLUENZA VACCINE] Future Scheduled 1992 SHINGLES VACCINES (#1) H ouannamarie Shinto Test 00:00:00 [code = SHINGLES VACCINES (#1)] Future Scheduled 1958 Hepatitis C screening Seymour mello Shinto Test 00:00:00 (procedure) [code = 270986184] Future Scheduled 1946 65+ PNEUMOCOCCAL Fernando Shinto Test 00:00:00 VACCINE (1 of 2 - PPSV23) [code = 65+ PNEUMOCOCCAL VACCINE (1 of 2 - PPSV23)] Encounters Start End Encounter Admission Attending Care Care Encounter Source Date/Time Date/Time Type Type Clinicians Facility Department ID 2020-10-10 Outpatient SYSTEM, [facility] BOYKIN [id number] 15:17:19 PROVIDER Chencho o marcelo 2020-05-21 Outpatient SYSTEM, [facility] BOYKIN [id number] 11:01:57 PROVIDER Chencho o marcelo 2020-04-09 Outpatient SYSTEM, A[facility]UTOS[facility] BOYKIN [id number] 10:48:48 PROVIDER Chencho o marcelo 2021-04-05 2021-04-05 Outpatient EL CHECKA, [facility] BOYKIN [id number] 00:00:00 00:00:00 CRISTY robertson 2021-04-02 2021-04-02 Outpatient EL CHECKA, [facility] BOYKIN [id number] 00:00:00 00:00:00 CRISTY robertson 2021-04-02 2021-04-02 Outpatient EL CHECKA, [facility] BOYKIN [id number] 00:00:00 00:00:00 CRISTY robertson 2020-12-28 2021-01-12 Inpatient VELASQUEZ, [facility] [id number] [place] 00:00:00 00:00:00 STEVIE [address] 2020-12-28 2020-12-28 Outpatient [facility], [facility] [id number] [place] 00:00:00 00:00:00 BLOSSOM [address] 2020-12-28 2020-12-28 Outpatient DANAE, [facility] [id number] [place] 00:00:00 00:00:00 BLOSSOM [address] 2020-12-28 2020-12-28 Outpatient DANAE, [facility] [id number] [place] 00:00:00 00:00:00 BLOSSOM [address] 2020-12-13 2020-12-13 Outpatient DESTINY, [facility] [id number] [place] 00:00:00 00:00:00 SALOMÓN [address] 2020-12-05 2020-12-05 Outpatient DANAE, [facility] [id number] [place] 00:00:00 00:00:00 BLOSSOM [address] 2020-11-29 2020-11-29 Outpatient DESTINY, [facility] [id number] [place] 00:00:00 00:00:00 SALOMÓN [address] 2020-11-29 2020-11-29 Outpatient DESTINY, [facility] [id number] [place] 00:00:00 00:00:00 SALOMÓN [address] 2020-10-26 2020-10-26 Outpatient [facility] [id number] [place] 00:00:00 00:00:[address] 2020-09-28 2020-09-28 Outpatient [facility] [id number] [place] 00:00:00 00:00:[address] 2020-08-10 2020-08-10 Outpatient STANLEY, [facility] [id number] [place] 00:00:00 00:00:00 EDWARD [address] 2020-08-02 2020-08-02 Outpatient STANLEY, [facility] [id number] [place] 00:00:00 00:00:00 EDWARD [address] 2020-07-19 2020-07-21 Inpatient ANGULO, SH[facility]ON [facility] [id number] [place] 00:00:00 00:00:[id number] 2020-07-16 2020-07-16 Outpatient [facility], [facility] [id number] [place] 00:00:00 00:00:00 EDWARD [address] 2020-06-28 2020-06-28 Outpatient [facility]LEY, [facility] [id number] [place] 00:00:00 00:00:00 EDWARD [address] 2020-06-28 2020-06-28 Outpatient [facility], [facility] [id number] [place] 00:00:00 00:00:00 EDWARD [address] 2020-06-28 2020-06-28 Outpatient ST[facility], [facility] [id number] [place] 00:00:00 00:00:00 EDWARD [address] 2020-04-30 2020-04-30 Outpatient EL CHECKA, MDA MDA [id number] MD 10:13:00 10:13:00 CRISTY Josh so n 2020-04-30 2020-04-30 Outpatient CHECKA, MDA MDA [id number] MD 10:12:59 10:12:59 CRISTY Josh so n 2020-04-30 2020-04-30 Outpatient CHECKA, MDA MDA [id number] MD 10:12:58 10:12:58 CRISTY Josh so n 2020-04-30 2020-04-30 Outpatient CHECKA, MDA MDA [id number] MD 10:12:57 10:12:57 CRISTY Josh so n 2020-04-30 2020-04-30 Outpatient CHECKA, MDA MDA [id number] MD 10:12:55 10:12:55 CRISTY Josh so n 2020-04-30 2020-04-30 Outpatient CHECKA, MDA MDA [id number] MD 10:12:54 10:12:54 CRISTY Josh so n 2020-04-02 2020-04-02 Outpatient EL CHECKA, MDA MDA [id number] MD 12:01:05 12:15:42 CRISTY Josh so n Results Test Description Test Time Test Comments Results Result Comments Source ECG 12 lead 2021-01-10 22:28:32 Test Item Value Reference Range Interpretation Comme nts Ventricular rate (test code = 253) 95 Atrial rate (test code = 255) 95 MN interval (test code = 266) 144 QRSD interval (test code = 260) 74 QT interval (test code = 264) 364 QTC interval (test code = 265) 457 P axis 1 (test code = 267) 77 QRS axis 1 (test code = 268) 61 T wave axis (test code = 270) 79 EKG impression (test code = 273) Normal sinus rhythm-Left ventricul ar hypertrophy with repolarization abnormality- [facility] Chest External [id number] 13:56:33This exam was not acquired at a Shinto facility and has not been interpreted by a Shinto Provider. The exam was imported into our imaging system.[facility] MethodistUS Soft Tissue Head [id number] 16:18:24Hm Interface, Radiology Results Incoming - 01/03/2021 4:21 PM CDT EXAMINATION: US SOFT TISSUE HEAD NECKCLINICAL HISTORY: 1.9 cm left neck mass reported on recent carotid duplex examinationCOMPARISON: Carotid ultrasound report 12/31/2020TECHNIQUE: Transverse and longitudinal sonographic images of the thyroid gland were obtained. Grayscale and color Doppler images were also obtained.FINDINGS: RIGHT THYROID LOBE:1.The right thyroid lobe ankur ures 5.8 x 1.5 x 2.2 cm. It is heterogeneous in echotexture. Benign-appearing spongiform 10 mm andsmaller thyroid nodules. 2.There are no enlarged right neck lymph nodes.ISTHMUS:1.The isthmus thickness measures 0.4 cm. No suspicious thyroid nodules. LEFT THYROID LOBE:1.The left thyroid lobe measures 5.8 x 1.8 x 2.2 cm. It is heterogeneous in echotexture.2.There are no enlarged left neck lymph nodes.NODULE 1 Location: Mid upper Size: 2.0 x 1.5 x 1.3 cm, No prior available. Composition: Spongiform Echogenicity: Hypoechoic 2 pts Shape: Wider than tall 0 pts Margin: Smooth 0pts Echogenic foci: None or large comet-tail artifacts 0 ptsTOTAL POINTS: 2NODULE 2 Location: Inferior Size: 1.3 x 0.8 x 1.0 cm, No prior available. Composition: Spongiform 0 pt Echogenicity: Hyperechoic or Isoechoic 1 pt Shape: Wider than tall 0 pts Margin: Smooth 0 pts Echogenic foci: None or large comet- tail artifacts 0 ptsTOTAL POINTS: 1NODULE 3 Location: Superior Size: 1.5 x 0.6 x 0.8 cm, No prior available. Composition: Spongiform 0 pt Echogenicity: Hyperechoic or Isoechoic 1 pt Shape: Wider than tall 0 pts Margin: Smooth 0 pts Echogenic foci: None or large comet-tail artifacts 0 ptsTOTAL POINTS: 1IMPRESSION:1. Mildly heterogeneous thyroid gland.2. Multiple benign-appearing spongiform thyroid nodules in both lobes measuring up to 2.0 cm on the left. The larger 2.0 cm left thyroid nodule likely correlates with findings on recent carotid duplex examination. If there is clinical concern for other neck mass, neck CT can be performed for further evaluation.ACR TI-RADS0 points: TR1. Benign. No FNA.2 points: TR2. Not suspicious. No FNA.3 points: TR3. Mildly suspicious. FNA if > or = 2.5 cm. Follow if > or = 1.5 cm.4-6 points: TR4. Moderately suspicious. FNA if > or = 1.5 cm. Follow if > or = 1 cm.7 or more points: TR5. Highly suspicious. FNA if > or = 1 cm. Follow if > or = 0.5 cm.[id number] MethodistInvasive peripheral vascular [id number] 16:42:38No right femoral pulse. Weak left femoral pulse. Abdominal aortic bilateral iliac and common femoralstents noted. L iliac stent stenosis could not pass catheter. Wire could pass through only. Next left brachial approach. Occluded left subclavian artery. Wire passed but not 4 wolof catheter. Heartcath aborted. Will attempt right upper extremity access prior to her TAVR. She was given 5000 of heparin.[facility] lab [id number] 14:09:12 [id number] Coronary angiography performed via R Radial approach, using standard Sandra catheters. Severe three vessel CAD is present. Large distal targets. Will need consideration for SAVR/CABG rather than TAVR. Procedure terminated after angiogram. I was physically present for the critical portions of all procedures performed during this episode of care. [facility] cath aborted [id number] 21:02:59Aborted invasive cardiology procedure -- see clinical documentation as to Brianna Marsh duplex arterial lower [id number] 17:04:00Interface, Radiology Results In - 12/31/2020 5:05 PM CDT Vascular Ultrasound Laboratory Lower Extremity Arterial Duplex Report [id number] [address], [place], [place] [address]Bhr.Name: KAREN HYDE Pat.ID: [id number] .Date: 12/31/2020 Refer.MD: SUSANA GONZALEZ MD Exam Time: 9:01:00 AM Study Type:LEArterial Height: 63in Weight: 111lb BSA: 1.51 m2 Age: 10 1940,80Y Sex: FEMALE Sonogrphr: Jaquelin Goodwin RDCS, RVTPat. Stat.:Inpatient Room: [address] Vol: ED, CPT - 4: 69693 Echo Event ID:[id number] Order ID: [id number] Reason for Study:Claudication History / Clinical:Former smoker, Lung Ca (Chemotherapy andRadiation), Aortic stenosis, PAD, HTN, HLD, COPD, CVA 2016Procedures:Colorflow, Grayscale/2D, Pulsed wave DopplerRace: C SUMMARY: DUPLEX SCAN OBSERVATIONS:RIGHT: There is scattered and diffuse calcified shadowing plaque notedthroughout arterial system. There are abnormal monophasic Dopplersignals noted throughout arterial system, suggestive of more proximalobstruction beyond the area of visualization. The common femoral andprofunda femoris arteries are patent. There is apatent stentvisualized in the proximal superficial femoral artery with undisturbedflow. There is Colorflow disturbance with elevated velocities noted inthe mid superficial femoral artery. Distal superficial femoral,popliteal, tibio-peroneal, peroneal, posterior tibial and anteriortibial arteries are patent.LEFT: There is scattered and diffuse calcified shadowing plaque notedthroughout arterial system. The common femoral and profunda femorisarteries are patent with biphasic Doppler signals. There is a patentstent visualized in the proximal superficial femoral artery withColorflow disturbance and elevated velocities within the stent. Thereis Colorflow disturbance with elevated velocities noted in the distalpopliteal artery with biphasic flow. The tibioperoneal trunk andanterior tibial arteries are patent with biphasic flow. There isColorflow disturbance with elevated velocity noted in the proximal posterior tibial artery; no flow visualized in the short segment ofthe mid portion; distally artery is patent with low monophasic flow.There is Colorflow disturbance with elevated velocity in the midperoneal artery; distal portion is patent to the foot with monophasicflow.PRELIMINARY FINDINGS:1. Abnormal monophasic Doppler signals were noted throughout rightarterial system, suggestive of more proximal obstruction beyond thearea of visualization.2. Patent right proximal superficial femoral artery stent withundisturbed flow.3. >75% stenosis of the right mid superficial femoral artery (ratio9.6).4.Patent left proximal superficial femoral artery stent with >70%stenosis (ratio 2.3).5. 50-75% stenosis of the left distal popliteal artery (ratio 2.9).6. 50- 75% stenosis of the left proximal posterior tibial artery (ratio3.2 ), followed by occlusion in the mid portion with reconstitution oflow monophasic flow distally.7. >75% stenosis of the left mid peroneal artery (ratio 5.4).8. See the same day physiology report.PHYSICIAN INTERPRETATION:Arterial duplex examination of both lower extremity demonstratesbilateral multi-level arterial occlusive disease:1. Abnormal monophasic Doppler signals were noted throughout rightarterial system, suggestive of more proximal obstruction beyond thearea of visualization.2. Patent right proximal superficial femoral artery stent withundisturbed flow.3. >75% stenosis of the right mid superficial femoral artery (ratio9.6).4. Patent left proximal superficialfemoral artery stent with >70%stenosis (ratio 2.3).5. 50-75% stenosis of the left distal popliteal artery (ratio 2.9).6. 50-75% stenosis of the left proximal posterior tibial artery (ratio3.2 ), followed by occlusion in the mid portion with reconstitution oflow monophasic flow distally.7. >75% stenosis of the left mid peroneal artery (ratio 5.4). FINDINGS:---- MEASUREMENTS : DOPPLERPop Dist Pop Dist PSV 29 cm/s SFA Dist SFA Dist PSV 71 cm/s SFA Mid SFA Mid PSV 186 cm/s Right Profunda Profunda PSV 22.5 cm/s Right PIPE BLANKS CUT OFF SAW OPERATOR Prox PIPE BLANKS CUT OFF SAW OPERATOR Prox PSV 154 cm/s Right SFA Prox SFA Prox PSV 86 cm/s Right SFA Prox 1 SFA Prox 1 PSV 104 cm/s Right SFA Mid 1 SFA Mid 1 PSV 29.6 cm/s Right SFA Mid 2 SFA Mid 2 PSV 283 cm/s RightSFA Dist 1 SFA Dist 1 PSV 58 cm/s Right Pop Prox Pop Prox PSV 26 cm/s Right TP Trunk Prox TP Trunk Prox P 29 cm/s Right TP Trunk Dist TP Trunk Dist P 23 cm/s Right BOOT MAKER Prox BOOT MAKER Prox PSV 37 cm/s Right BOOT MAKER Mid BOOT MAKER Mid PSV 17 cm/s Right BOOT MAKER Distal BOOT MAKER Distal PSV 19 cm/s Right Peroneal Prox Peroneal Prox P 12 cm/s Right Peroneal Mid Peroneal Mid PS 12 cm/s Right Peroneal Dist Peroneal Dist P 7 cm/s Right MARIXA Prox MARIXA Prox PSV 37 cm/s Right MARIXA Mid MARIXA MidPSV 20 cm/s Right MARIXA Distal MARIXA Distal PSV 18 cm/s Left PIPE BLANKS CUT OFF SAW OPERATOR Prox PIPE BLANKS CUT OFF SAW OPERATOR Prox PSV 104 cm/s Left PIPE BLANKS CUT OFF SAW OPERATOR Mid PIPE BLANKS CUT OFF SAW OPERATOR Mid PSV 151 cm/s Left Profunda Profunda PSV 55 cm/s Left SFA Prox SFA Prox PSV 149 cm/s Left SFA Prox 1 SFA Prox 1 PSV 346 cm/s Left SFA Prox 2 SFA Prox 2 PSV 328 cm/s Left SFA Mid SFA Mid PSV 91 cm/s Left SFA Mid 1 SFA Mid 1 PSV 65 cm/s Left SFA Dist SFA Dist PSV 67 cm/s Left SFA Dist 1 SFA Dist 1 PSV 65 cm/s Left Pop Prox Pop Prox PSV 59 cm/s Left Pop Dist Pop Dist PSV 47.2 cm/s Left Pop Dist 1 Pop Dist 1 PSV 139 cm/s Left TP Trunk Prox TP Trunk Prox P 87 cm/s Left TP Trunk Dist TP Trunk Dist P 32 cm/s Left BOOT MAKER Prox BOOT MAKER Prox PSV 27 cm/s Left BOOT MAKER Prox 1 BOOT MAKER Prox 1 PSV 87.7 cm/s Left BOOT MAKER Mid BOOT MAKER Mid PSV 30.7 cm/s Left BOOT MAKER Mid1 BOOT MAKER Mid 1 PSV 0 cm/s Left BOOT MAKER Distal BOOT MAKER Distal PSV 6 cm/s Left Peroneal Prox Peroneal Prox P 48 cm/s Left Peroneal Mid Peroneal Mid PS 20 cm/s Left Peroneal Mid 1 Peroneal Mid 1 108 cm/s Left Peroneal Dist Peroneal Dist P 18 cm/s Left MARIXA Prox MARIXA Prox PSV 70 cm/s Left MARIXA Mid MARIXA Mid PSV 41 cm/s Left MARIXA Distal MARIXA Distal PSV 57 cm/s Signed 12/31/2020 05:04 PMZsolt Rivera MD, [facility] MethodistSpirometry pre & post w/ bronchodilator, diffusion, lung [id number] 14:15:45 Test Item Value Reference Range Interpretation Comments FEV1 Post (test code = 0.82 L 5349) FVC Post (test code = 1.68 L 5356) FEV1/FVC % Post (test 49.01 % code = 5363) FEF 25-75% Post (test 0.32 L/s code = 5549) PEF Post (test code = 1.87 L/s 5369) DLCO Pre (test code = 7.3 ml/(min*mmHg) 5423) DLCOc Pre (test code = 7.65 ml/(min*mmHg) 5430) DL/VA Pre (test code = 2.47 ml/(min*mmHg*L) 5437) KCOc SB Pre (test code 2.59 ml/(min*mmHg*L) = 5535) VA SB Pre (test code = 2.95 L 5444) Hb Pre (test code = 12 g(Hb)/dL 5540) VC Pre (test code = 1.57 L 5374) ERV Pre (test code = 0.46 L 5381) FRCpl Pre (test code = 3.78 L 5388) IC Pre (test code = 1.11 L 5395) RV Pre (test code = 3.32 L 5402) RV % TLC Pre (test 67.96 % code = 5409) TLC Pre (test code = 4.89 L 5416) Raw Pre (test code = 6.99 cmH2O*s/L 5507) R0.5IN Pre (test code 2.31 cmH2O*s/L = 5514) sR0.5IN Pre (test code 9.84 cmH2O*s = 5521) sGaw Predicted (test 0.03 See_Comment [Autom ated message] code = 5528) The system Arrayit generated this result transmitted ref erence range: 1/(cmH2O *s). The reference range was not used to interpr et this result as normal/abnormal . FEV1 Pre (test code = 0.85 L 5348) FVC Pre (test code = 1.74 L 5354) FEV1/FVC % Pre (test 48.96 % code = 5361) FEF 25-75% Pre (test 0.28 L/s code = 5547) PEF Pre (test code = 2.4 L/s 5367) FEV1 Predicted (test 1.92 code = 5302) FEV1 LLN (test code = 1.35 5347) FEV1 % Pre of 44.4 % Predicted (test code = 5308) FEV1 % Post of 43 % Predicted (test code = 5350) FEV1 % Change (test -3.1 % code = 5351) FVC Predicted (test 2.57 code = 5307) FVC LLN (test code = 1.9 5353) FVC % Pre of Predicted 67.5 % (test code = 5355) FVC % Post of 65.3 % Predicted (test code = 5357) FVC % Change (test -3.2 % code = 5358) FEV1/FVC % Predicted 74 (test code = 5359) FEV1/FVC % LLN (test 64 code = 5360) FEV1/FVC % Pre of 66 % Predicted (test code = 5362) FEV1/FVC % Post of 66 % Predicted (test code = 5364) FEV1/FVC % Change 0.1 % (test code = 5365) FEF 25-75% Predicted 1.45 (test code = 5546) FEF 25-75% LLN (test 0.25 code = 5545) FEF 25-75% % Pre of 19.4 % Predicted (test code = 5548) FEF 25-75% % Post of 22.2 % Predicted (test code = 5550) FEF 25-75% % Change 14.5 % (test code = 5551) PEF Predicted (test 4.83 code = 5310) PEF LLN (test code = 3.17 5366) PEF % Pre of Predicted 49.8 % (test code = 5368) PEF % Post of 38.8 % Predicted (test code = 5370) PEF % Change (test -22.1 % code = 5371) VC Predicted (test 2.57 code = 5372) VC LLN (test code = 1.9 5373) VC % Pre of Predicted 60.9 % (test code = 5375) ERV Predicted (test 0.52 code = 5379) ERV LLN (test code = 0.52 5380) ERV % Pre of Predicted 87.8 % (test code = 5382) FRCpl % Predicted 2.66 (test code = 5386) FRCpl % LLN (test code 1.84 = 5387) FRCpl % Pre of 141.9 % Predicted (test code = 5389) IC Predicted (test 1.79 code = 5393) IC LLN (test code = 1.79 5394) IC % Pre of Predicted 62.2 % (test code = 5396) RV Predicted (test 2.14 code = 5400) RV LLN (test code = 1.57 5401) RV % Pre of Predicted 155 % (test code = 5403) RV % TLC Predicted 45 (test code = 5407) RV % TLC LLN (test 36 code = 5408) RV % TLC % Pre of 149.4 % Predicted (test code = 5410) TLC Predicted (test 4.77 code = 5414) TLC LLN (test code = 3.78 5415) TLC % Pre of Predicted 102.5 % (test code = 5417) Raw Predicted (test 3.06 code = 5505) Raw LLN (test code = 3.06 5506) Raw % Pre of Predicted 228.5 % (test code = 5508) R0.5IN Predicted (test 3.06 code = 5512) R0.5IN LLN (test code 3.06 = 5513) R0.5IN % Pre of 75.6 % Predicted (test code = 5515) sGaw Predicted (test 0.1 code = 5526) sGaw LLN (test code = 0.1 5527) sGaw % Pre of 33 % Predicted (test code = 5529) DLCO Predicted (test 19.21 code = 5421) DLCO LLN (test code = 12.71 5422) DLCO % Pre of 38 % Predicted (test code = 5424) DLCOc Predicted (test 19.21 code = 5428) DLCOc LLN (test code = .71 5429) DLCOc % Pre of 39.8 % Predicted (test code = 5431) DL/VA Predicted (test 4.21 code = 5435) DL/VA LLN (test code = 2.89 5436) DL/VA % Pre of 58.8 % Predicted (test code = 5438) KCOc SB Predicted 4.21 (test code = 5533) KCOc SB LLN (test code 2.89 = 5534) KCOc SB % Pre of 61.6 % Predicted (test code = 5536) VA SB Predicted (test 4.9 code = 5442) VA SB LLN (test code = 3.8 5443) VA SB % Pre of 60.2 % Predicted (test code = 5445) [facility] ankle brachial [id number] 12:09:00Interface, Radiology Results In - 12/31/2020 12:10 PM CDTFormatting of this note might be different f rom the original. Vascular Diagnostic Laboratory Physiologic Arterial Leg Report [id number] [address] Pat.Name: KAREN HYDE Jodryn.ID: [id number] .Date: 12/31/2020 Refer.MD: SUSANA GONZALEZ MD Exam Time: 7:42:00 AM Study Type:Physiologic Leg Height: 63in Weight: 111lb BSA: 1.51 m2 Age: 10 1940,80Y Sex: FEMALE Sonogrphr: Jaquelin Goodwin RDCS, RVTPat. Stat.:Inpatient Room: [address] [address] A Tape Vol: ED, CPT - 4: 81389Aosm Event ID:[id number] Order ID: [id number] Reason for Study:Claudication History / Clinical:Former smoker, Lung Ca (Chemotherapy andRadiation), Aortic stenosis, PAD, HTN, HLD, COPD, CVA 2017Procedures: Ankle/brachial pressures, Digit pressures, Non-imagingcontinuous wave Doppler, PPG waveform tracingRace: C SUMMARY: DOPPLER SIGNALS / ANALOG WAVEFORMS DOPPLER SIGNALSARTERY RIGHT LEFTPosterior Tibial Abnormal AbnormalDorsalis Pedis Abnormal AbnormalSEGMENTAL PRESSURE(mmHg): RIGHT LEFTBrachial 187 140Ankle DP 78 122Ankle PT 84 116Great Toe 7 81ANKLE/BRACHIALINDEX: RIGHT LEFTDorsalis Pedis 0.42 0.65Posterior Tibial 0.45 0.62TOE/BRACHIAL INDEX: RIGHT LEFT 0.04 0.43PRELIMINARY FINDINGS:1. The dorsalis pedis and posterior tibial arteries have abnormalDoppler signals bilaterally.2. The right SHELL's are within severe obstructive range; the left SHELL'sarewithin moderate obstructive range.3. The right TBI is within severe obstructive range; the left TBI iswithin mild obstructive range.4. See the same day LE arterial duplex report.PHYSICIAN INTERPRETATION: 1. The dorsalis pedis and posterior tibial arteries have abnormalDoppler signals bilaterally.2. The right SHELL's are within severe obstructive range; the left SHELL'sare within moderate obstructive range.3. The right TBI is within severe obstructive range; the left TBI iswithin mild obstructive range.- FINDINGS: Signed 12/31/2020 12:09 PMRichard Stafford MD, RPVIHouston MethodistUs carotid [id number] 12:08:00Interface, Radiology Results In - 12/31/2020 12:09 PM CDT Vascular Ultrasound Laboratory Carotid Artery Duplex Report [id number] [place] [address] For water quality control engineer purposes, the categorization of thedegree of the stenosis of this exam is based on criteria described in the IAC carotid stenosis grading white paper( www.intersocietal.org/Vascular) and Noemy Boggs., Brook Daniels, et al. Carotid artery stenosis: botello-scale and Doppler US diagnosis--Society of Radiologists in Ultrasound Consensus Conference. Radiology. 2003 Nov; 229(2):340-6. Pat.Name: KAREN HYDE Pat.ID: [id number] .Date: 12/31/2020 Refer.MD: SUSANA GONZALEZ MD Exam Time: 7:40:00 AM Study Type:Carotid Height: 63in Weight: 111lb BSA: 1.51 m2 Age: 10 1940,80Y Sex: FEMALE Sonogrphr:Jaquelin Goodwin RDCS, RVTPat. Stat.:Inpatient Room: [address] TapeVol: ED, CPT - 4: 38205 Echo Event ID:[id number] Order ID: [id number] Reason for Study:Pre-op evaluation History / Clinical:Former smoker, Lung Ca (s/p Chemotherapy andRadiation), Aortic stenosis, HTN, HLD, COPD, PAD, H/o CVA 2017Procedures: Colorflow, Grayscale/2D, Pulsed wave DopplerRace: C SUMMARY: PHYSICAL ASSESSMENT Blood Pulses Carotid Systolic Pressure Carotid Temporal BruitRight 187 + + 0Left 140 + + 0CAROTID ARTERY SCANRIGHT: There is hard plaque in the common carotid artery. There ishard and calcified plaque noted in the bulb extending into theproximal internal and external carotid artery. Colorflow is disturbedwith elevated velocities noted in the external carotid artery. Thevertebral artery flow is antegrade. LEFT: There is hard plaque in the common carotid artery. There ishard and calcified plaque noted in the bulb extending into theproximal internal and external carotid artery. Colorflow is disturbedwith elevated velocities noted in the external carotid artery. Thevertebral artery flow is retrograde. The subclavian artery hasabnormal monophasic Doppler signals.PRELIMINARY FINDINGS1. <50% stenosis in the bulb and internal carotid artery,bilaterally. 2. >50% stenosis in the external carotid artery, bilaterally. 3. The right vertebral artery flow is antegrade; the left vertebralartery flow is retrograde.4. The left subclavian artery has abnormal monophasic Doppler signals,suggestive of obstruction beyond the area of visualization.5. Non-vascular echogenic mass, measuring approximately 1.9 x 1.6 x0.9 cm noted in the left proximal neck (images 37, 38, 39).PHYSICIAN INTERPRETATION Bilateral carotid duplex examination demonstratedatheroscleroticplaques in the bulbs. Less than 50% stenosis in the bulb and internal carotid artery,bilaterally.Greater than 50% stenosis in the external carotid artery, bilaterallyThe right vertebral artery flow is antegrade; the left vertebralartery flow is retrograde.Abnormal waveform and BP differences between the arms suggestive of proximal stenosis of left subclavian artery .Non vascular neck mass measuring approximately 1.9 x 1.6 x 0.9 cmpossible lymph node -FINDINGS: Carotid Findings: Right Left Verteb.Flw Antegrade Retrograde Subclavian Biphasic Monophasic MEASUREMENTS:- DOPPLERLeft CCA Dist CCA Dist PSV 73.6 cm/s CCA Dist EDV 10.7 cm/sLeft CCA Mid CCA Mid PSV 64.1 cm/s CCA Mid EDV 10.7 cm/sLeft CCA Prox CCA Prox PSV 62.4 cm/s CCA Prox EDV 6.53 cm/sLeft ECA Prox ECA Prox PSV 182 cm/s ECA Prox EDV 0 cm/sVertebral Vertebral PSV-64.4 cm/s Right CCA Dist CCA Dist PSV 84.3 cm/s CCA Dist EDV 14.8 cm/sRight ICA Mid ICA Mid PSV 77.7 cm/s ICA Mid EDV 18.8 cm/sRight ICA Prox ICA Prox PSV 78.4 cm/s ICA Prox EDV 19.4 cm/sRight ECA Prox ECA Prox PSV 263 cm/s ECA Prox EDV 0 cm/sRight SCA Prox SCA Prox PSV 121 cm/s Right Vertebral Vertebral PSV 136 cm/s Vertebral EDV 15.7 cm/sRight CCA Prox CCA Prox PSV 71.9 cm/s CCA Prox EDV 13.1 cm/sRight CCA Mid CCA Mid PSV 72.5 cm/s CCA Mid EDV 10.7 cm/sLeft ICA Prox ICA Prox PSV 92.2 cm/s ICA Prox EDV 22.5 cm/sLeft ICA Mid ICA MidPSV 118 cm/s ICA Mid EDV 24 cm/sRight ICA Dist ICA Dist PSV 69 cm/s ICA Dist EDV 18.1 cm/sLeft ICA Dist ICA Dist PSV 68.1 cm/s ICA Dist EDV 14.6 cm/sLeft Vertebral Vertebral EDV 0 cm/s Left SCA Prox SCA Prox PSV 77.1 cm/s Right ICA/CCA Ratio ICA/CCA PSV 1.08 Left ICA/CCA Ratio ICA/CCA PSV 1.44 Signed 12/31/2020 12:08 Frank Stafford MD, [facility] MethodistXR Chest 1 Vw [id number] 16:16:54Hm Interface, Radiology Results - 12/28/2020 4:20 PM CDT EXAMINATION: XR CHEST 1 VW PORTABLEINDICATION: coughCOMPARISON: Most recent priorIMPRESSION:Heart size is within normal limits.Emphysematous appearance of the lungs with multifocal scarring which is most prominent in the right upper lobe and lung apices. Questionable superimposed acute airspace disease in the right suprahilar region may represent superimposed pneumonia. Further evaluation with chest CT is recommended.No visible effusion or pneumothorax.[id number] Fernando MethodistCOVID-19 qualitative [id number] 15:00:43 Test Item Value Reference Range Interpretation Comments Interpretation (test Negative results do code = 1513664) not preclude 2019-nCoV infection and should not be used as the sole basis for treatment or other patient management decisions. Negative results must be combined with clinical observations, patient history, and epidemiological information. COVID-19 qualitative Not-Detected Not-Detected PCR result (test code = 67938-2) COVID-19 qualitative See link below for C ase Number: PCR (test code = PDF Lab Report [id number]) Fernando Cody-CoV-2 (COVID-19) RNA [Presence] in Respiratory specimen by PADMAJA with probe [id number] 15:00:32 Test Item Value Reference Range Interpretation Comments SARS-CoV-2 (COVID-19) RNA Not detected Not-Detected [Presence] in Respiratory specimen by PADMAJA with probe detection (test code = 42143-1) Surgical pathology [id number] 13:50:20 Test Item Value Reference Range Interpretation Comments Case number (test [id number] code = 4675794) Surgical pathology See link below for PDF report (test code = Lab Report 2255) Result status (test This is Supplemental code = 1881769) Report for [id number] Fernando Cody-CoV-2 (COVID-19) RNA [Presence] in Respiratory specimen by PADMAJA with probe [id number] 19:18:48 Test Item Value Reference Range Interpretation Comments SARS-CoV-2 (COVID-19) RNA Not detected Not-Detected [Presence] in Respiratory specimen by PADMAJA with probe detection (test code = 10722-9) Cytology (non-gynecological) [id number] 11:46:33 Test Item Value Reference Range Interpretation Comments Case number (test code = [id number]) Cytology See link below for (non-gynecological) PDF Lab Report report (test code = 1178) Result status (test code This is Final Report = [id number]) for [id number] Fernando ManciniPuizimxjoMPFS-FcE-9 (COVID-19) RNA [Presence] in Respiratory specimen by PADMAJA with probe [id number] 01:37:23 Test Item Value Reference Range Interpretation Comments SARS-CoV-2 (COVID-19) RNA Not detected Not-Detected [Presence] in Respiratory specimen by PADMAJA with probe detection (test code = 69487-1) CT Needle Biopsy No [id number] 16:18:46Hm Interface, Radiology Results Incoming - 07/19/2020 4:21 PM CDT EXAMINATION: CT NEEDLE BIOPSY NO CONTRASTCLINICAL HISTORY: R91.8 Other nonspecific abnormal finding of lung field, Right lower lobe lung massCOMPARISON: None.PROCEDURE: Image-guided biopsy. Chest tube placement.Procedural PersonnelAttending physician(s): Cornell Bedoya MDFesidra physician(s): NoneResident physician(s): Luis Fernando Armstrong MD.Advanced practice provider(s): NonePre-procedure diagnosis: Lung nodule concerning for malignancyPost-procedure diagnosis: SameIndication: Histopathologic diagnosisPrevious biopsy of same target (QCDR): NoAdditional clinical history: NoneComplications: Pneumothorax, increasing in size despite aspirationIMPRESSION:1. Image-guided biopsy of right lower lobe lung nodule.2. Pneumothorax, increasing in size despite aspiration.3. Right-sided 10 [place] chest tube placement.Plan: Specimen(s) sent for evaluation. PROCEDURE SUMMARY:- Percutaneous CT-guided coaxial core needle biopsy- Additional procedure(s): Percutaneous CT-guided chest tube placement.PROCEDURE DETAILS:Pre-procedureReference imaging for biopsy target: PET/CT 06/21/2020Consent: Informed consent for the procedure including risks, benefits and alternatives was obtained and time-out was performed prior to the procedure.Preparation: The site was prepared and draped using maximal sterile barrier technique including cutaneous antisepsis.Anesthesia/sedationLevel of anesthesia/sedation: Moderate sedation (conscioussedation)Anesthesia/sedation administered by: Independent trained observer under attending supervision with continuous monitoring of the patients level of consciousness and physiologic statusTotal intra-service sedation time (minutes): 60Biopsy Local anesthesia was administered. Under imaging guidanceas stated in the procedure summary, the biopsy needle was advanced to the target and biopsy was performed.Coaxial needle: 17 gaugeCore needle biopsy device: Red Guru needle size: 18 gaugeNumberof core specimens: 9On-site biopsy touch preparation: Yes Additional sampling recommendations: NonePreliminary assessment of sample adequacy: AdequateNeedle removalThe biopsy needle was removed and a sterile dressing was applied.Tract embolization: NoneChest tube placementThe patient was positioned supine. Initial imaging was performed. Local anesthesia was administered. The pleural space was accessed using an access needle followed by wire insertion and serial dilation and a drainage catheter was placed. Position of the drainage catheter within the pleural space was confirmed.- Initial imaging findings: Enlarging right pneumothorax- Drainage catheter placed: Multipurpose drainage catheter- External catheter securement: Non-absorbable suture- Post-drainage imaging findings: Appropriate positionof the catheter within the right pleural space.- Additional findings: NoneContrastContrast agent: NoneContrast volume (mL): 0Radiation DoseCT dose length product (mGy-cm): 1321 Additional DetailsAdditional description of procedure: NoneEquipment details: NoneSpecimens removed: Biopsy samples as detailed aboveEstimated blood loss (mL): Less than 10Standardized report: [id number] name: ANTONIO Manriquez attest that I was present for the entire procedure. I reviewed the stored images and agree with the report as written.[id number] HhuhjlgwjFGZU-ZuD-6 (COVID-19) RNA [Presence] in Respiratory specimen by PADMAJA with probe [id number] 21:44:37 Test Item Value Reference Range Interpretation Comments SARS-CoV-2 (COVID-19) RNA Not detected Not-Detected [Presence] in Respiratory specimen by PADMAJA with probe detection (test code = 50995-8) PET/CT Whole Body External [id number] 11:12:02This exam was not acquired at a [facility]into facility and has not been interpreted by a Shinto Provider. The exam was imported into our imaging system.[facility]DEL[facility] Breast 2020-04-30 15:55:53For comparison only. No interpretation requested.MD Clarke OSI [id number] 15:55:24For comparison only. No interpretation requested.MD Clarke
[2021-03-18 03:12] LABS: Protime INR 1.06
[2021-03-18 03:26] LABS: Albumin 3.4 g/dL (3.4-5.0); Bilirubin Direct 0.1 mg/dL (0-0.2); Bilirubin Total 0.4 mg/dL (0.2-1.0); Magnesium 1.6 mg/dL (1.8-2.4); Protein, Total 6.7 g/dL (6.4-8.2); Troponin (Emerg Dept Use Only) 0.07 ng/mL (0.0-0.045)
[2021-03-18 03:27] LABS: Absolute Lymphocytes (CBC) 5.3 K/uL (0.7-4.9); Basophils % 0.8 % (0-1.3); Hematocrit 38.1 % (36.0-45.0); Lymphocytes % 44.8 % (15.3-44.8); RBC Red Blood Cell Count 4.35 M/uL (3.86-4.86)
[2021-03-18] MEDS ORDERED: FUROSEMIDE 20 MG/ 2ML VIAL ONE (05:37)
[2021-03-18] MEDS ORDERED: ASPIRIN EC 81 MG TAB PO ONE (05:38)
[2021-03-18 06:02] LABS: Urine Blood Negative (Negative); Urine Glucose Negative (Negative); Urine Protein 1+ (Negative); Urine Specific Gravity 1.025 (1.005-1.030); Urine pH 6.5 (5.0-7.0)
--- NOTE | 2021-03-18 06:54 | ER ---
Nurse's Notes [facility] Name: Prema Massey Age: 80 yrs Sex: Female : 1940 Arrival Date: 03/18/2021 Time: 02:47 Bed 7 Private MD: Diagnosis: Acute combined systolic and diastolic heart failure;COPD Exacerbation Presentation: 03/18 02:50 Chief complaint: EMS states: an hour ago she started to have shortness of breath . we rr5 arrived in the scene she is on tripod position, audible right side wheezing sound, coughing. gave A\\T\\A treatment still having Difficulty of breathing put on CPAP machine and felt better. 02:50 Coronavirus screen: Client denies travel out of the [place] in the last 14 days. cough rr5 unrelated to allergies, difficulty breathing, Client presents with at least one sign or symptom that may indicate coronavirus-19. Standard/surgical mask placed on the client. Provider contacted for isolation considerations. Ebola Screen: Patient negative for fever greater than or equal to 101.5 degrees Fahrenheit, and additional compatible Ebola Virus Disease symptoms Patient denies exposure to infectious person. Patient denies travel to an Ebola-affected area in the 21 days before illness onset. Initial Sepsis Screen: Does the patient meet any 2 criteria? RR > 20 per min. HR > 90 bpm. Yes Does the patient have a suspected source of infection? No. Patient's initial sepsis screen is negative. Risk Assessment: Do you want to hurt yourself or someone else? Patient reports no desire to harm self or others. Onset of symptoms was March 18, 2021. Care prior to arrival: Medication(s) given: Albuterol Neb x 1, Atrovent Neb x 1, Normal saline infusion, 250 ml solu medrol 125 mg /IV IV initiated. 20 GA, in the left forearm. 02:50 Method Of Arrival: EMS: [facility] rr5 02:50 Acuity: ANNALISA 2 rr5 Triage Assessment: 03:00 Respiratory: the patient reports symptoms have resolved. rr5 03:00 General: Appears in no apparent distress. comfortable, Behavior is calm, cooperative, rr5 appropriate for age. Respiratory: Onset: The symptoms/episode began/occurred just prior to arrival. Historical: - Allergies: 03:00 Codeine; rr5 03:00 Iodine; rr5 03:00 Sulfa (Sulfonamide Antibiotics); rr5 07:17 Latex, Natural Rubber; rr5 - Home Meds: 03:00 losartan 100 mg Oral tab 1 tab once daily [Active]; oxybutynin chloride 10 mg Oral tr24 rr5 1 tab once daily [Active]; Meclizine Oral [Active]; potassium chloride 10 mEq Oral cpER 1 cap once daily [Active]; amlodipine oral [Active]; gabapentin oral oral [Active]; Aspirin Oral [Active]; Methocarbamol Oral [Active]; Tramadol Oral [Active]; - PMHx: 03:00 Hypertension; COPD; rr5 03:45 Pneumothorax; lung cancer; aortic stenosis; rr5 - PSHx: 03:45 Appendectomy; Cholecystectomy; peripheral stents; rr5 - Immunization history:: Adult Immunizations up to date. - Social history:: Smoking status: Patient/guardian denies using tobacco, Patient/guardian denies using alcohol, street drugs. Screenin:02 Abuse screen: Denies threats or abuse. Denies injuries from another. Nutritional rr5 screening: No deficits noted. Tuberculosis screening: No symptoms or risk factors identified. Fall Risk IV access (20 points). Total Cummins Fall Scale indicates No Risk (0-24 pts). Assessment: 03:00 General: Appears in no apparent distress. comfortable, Behavior is calm, cooperative, rr5 appropriate for age. Pain: Denies pain. Neuro: Level of Consciousness is awake, alert, obeys commands, Oriented to person, place, time. Cardiovascular: Capillary refill < 3 seconds Patient's skin is warm and dry. Rhythm is sinus tachycardia. Respiratory: Reports shortness of breath cough that is Airway is patent Respiratory effort is even, unlabored, Respiratory pattern is regular, symmetrical, Patient placed on BiPAP: Inspiratory Pressure: 14 Expiratory (EPAP) Pressure: 5 FiO2%: 35 Respiratory Rate: 14 Derm: Skin temperature is warm. Musculoskeletal: Capillary refill < 3 seconds. 03:49 Reassessment: Patient appears in no apparent distress at this time. Patient is alert, rr5 oriented x 3, equal unlabored respirations, skin warm/dry/pink. 04:30 Reassessment: Patient appears in no apparent distress at this time. Patient is alert, rr5 oriented x 3, equal unlabored respirations, skin warm/dry/pink. no complaints made. 05:42 Reassessment: Patient appears in no apparent distress at this time. Patient is alert, rr5 oriented x 3, equal unlabored respirations, skin warm/dry/pink. patient is in CT scan. family member updated that the provider called the patient's PCP in [place] (dr fowler) but did not answer the call, left a message to call back. family member wants to know the plan of dr fowler, they said if for admission they want to be transfer in [place]. 06:30 Reassessment: dr fowler from [place] called and order for transfer. rr5 07:10 Reassessment: Patient appears in no apparent distress at this time. Patient and/or sv family updated on plan of care and expected duration. Pain level reassessed. Patient is alert, oriented x 3, equal unlabored respirations, skin warm/dry/pink. 08:30 Reassessment: Patient appears in no apparent distress at this time. Patient and/or sv family updated on plan of care and expected duration. Pain level reassessed. Patient is alert, oriented x 3, equal unlabored respirations, skin warm/dry/pink. Patient states feeling better. Patient states symptoms have improved. 10:00 Reassessment: Patient appears in no apparent distress at this time. Patient and/or sv family updated on plan of care and expected duration. Pain level reassessed. Patient is alert, oriented x 3, equal unlabored respirations, skin warm/dry/pink. Patient states feeling better. Patient states symptoms have improved. 11:20 Reassessment: Report given to [facility]. Vital Signs: 02:50 BP 206 / 111; Pulse 131; Resp 20; Temp 97.6; Pulse Ox 100% ; Weight 55.79 kg; Height 5 rr5 ft. 3 in. (160.02 cm); Pain 0/10; 03:43 BP 134 / 61; Pulse 84; Resp 19; Pulse Ox 96% on 35% BiPAP; rr5 04:50 BP 110 / 56; Pulse 79; Resp 18; Pulse Ox 97% on 35% BiPAP; rr5 06:00 BP 134 / 65; Pulse 84; Resp 20; Pulse Ox 96% on 30% BiPAP; rr5 07:30 BP 110 / 67; Pulse 79; Resp 21; Pulse Ox 96% on 30% BiPAP; sv 08:03 Pulse Ox 96% 4 lpm ; sv 08:20 BP 126 / 62; Pulse 83; Resp 21; Pulse Ox 96% on 4 lpm NC; sv 09:30 BP 136 / 62; Pulse 85; Resp 16; Pulse Ox 97% on 4 lpm NC; sv 10:15 BP 128 / 66; Pulse 87; Resp 18; Pulse Ox 97% on 4 lpm NC; sv 02:50 Body Mass Index 21.79 (55.79 kg, 160.02 cm) rr5 ED Course: 02:47 Patient arrived in ED. rr5 02:49 Nicko Mullins MD is Attending Physician. [facility] 02:51 Norberto Johnson, RN is Primary Nurse. rr5 02:55 Page Bryson QURESHI [phone]. mw2 02:58 Triage completed. rr5 03:00 Arm band placed on right wrist. rr5 03:02 Patient has correct armband on for positive identification. Bed in low position. Call rr5 light in reach. Side rails up X2. teletypesetter monitor on. Pulse ox on. NIBP on. 03:02 Maintain EMS IV. Dressing intact. Good blood return noted. Site clean \\T\\ dry. Gauge \\T\\ rr 5 site: G20 left FA. 03:03 EKG done, by ED staff, reviewed by Nicko Mullins MD. rr5 03:41 XRAY Chest (1 view) In Process Unspecified. EDMS 04:58 COVID swab sent to lab. rr5 05:59 CT Chest Wo Con In Process Unspecified. EDMS 06:09 No provider procedures requiring assistance completed. rr5 06:[address] Fowler with Dr. Mullins. mw2 06:43 initiated a transfer with Swathi Moon from [facility]. mw2 06:52 Assisted to bedside commode. mt 07:00 Swathi Moon from [facility] called to inform us that "we don't have any IMU beds mw2 available since the patient is on continuous BIPAP that calls for a IMU bed. If you are able to take her off of the bipap and on nasal cannula then give us a call back and we will be able to get the patient a bed.". 07:26 Primary Nurse role handed off by Norberto Johnson, RN sv 07:26 Shreya Silveira, NICOLAS is Primary Nurse. sv 07:31 Basic Metabolic Panel Sent. sv 07:32 BIPAP Sent. sv 08:28 informed Swathi Moon from [facility] that pt is now off bipap and on 2 liters bd o2. 08:44 pt accepted in transfer to [facility] by Dr Mirza Mcgregor, admin approval bd given by Swathi Moon. pt going to [facility]. 09:12 Patient transferred, IV remains in place. intact. sv 09:30 transfer transportation to receiving facility. sv Administered Medications: 05:28 Drug: Aspirin Chewable Tablet 162 mg Route: PO; jm8 06:36 Follow up: Response: No adverse reaction rr5 05:28 Drug: Lasix (furosemide) 20 mg Route: IVP; Site: right forearm; jm8 06:35 Follow up: Response: No adverse reaction rr5 06:55 Drug: Rocephin (cefTRIAXone) 1 grams Route: IV; Rate: per protocol; Site: left forearm; rr5 07:14 Follow up: Response: No adverse reaction; IV Status: Completed infusion; IV Intake: 99krfn4 07:13 Dru mg of (Zithromax (azithromycin) 500 mg, NS 0.9% 250 ml) Route: IVPB; Infused rr5 Over: 1 hrs; Site: left forearm; 08:22 Follow up: Response: No adverse reaction; IV Status: Completed infusion; IV Intake: sv 250ml Intake: 07:14 IV: 10ml; Total: 10ml. rr5 08:22 IV: 250ml; Total: 260ml. sv 06:34 vioded rr5 Output: 06:34 Other: 2; Total: 0ml. rr5 07:32 Urine: 300ml (Voided); Total: 300ml. sv 09:00 Urine: 200ml (Voided); Stool: 1 (Formed Stool) ; Total: 500ml. sv 10:14 Urine: 100ml (Voided); Total: 600ml. sv 06:34 vioded rr5 Outcome: 06:54 ER care complete, transfer ordered by . 7 09:12 Transferred by ground EMS to [facility], Transfer form completed. X-rays sv sent w/ patient. Note: Report given to Angela VALENZUELA 09:12 Condition: stable 09:12 Instructed on the need for transfer. 11:36 Patient left the ED. sv Signatures: Dispatcher [employer] EDMS Kinza Cruz Stephanie RN RN sv Marcos Jeannie mt [place], JessSiobhan 2 Norberto Johnson RN RN rr5 Nicko Mullins MD MD mh7 Agus Clifford RN RN jm8 Corrections: (The following items were deleted from the chart) 03:02 02:50 BP 206 / 111; Pulse 131bpm; Resp 26bpm; Pulse Ox 100%; Temp 97.6F; 55.79 kg; rr5 Height 5 ft. 3 in.; BMI: 21.7; Pain 0/10; rr5 08:13 08:03 Pulse Ox 94% 2 lpm Nasal Cannula; sv sv 08:20 08:03 Pulse Ox 96% 3 lpm; sv sv
--- NOTE | 2021-03-18 06:54 | EDPHYS ---
Physician Documentation [facility] Name: Prema Massey Age: 80 yrs Sex: Female : 1940 Arrival Date: 03/18/2021 Time: 02:47 Bed 7 Private MD: ED Physician Nikco Mullins HPI: 03/18 03:04 This 80 yrs old Female presents to ER via EMS with complaints of Shortness Of mh7 Breath. 03:04 The patient has shortness of breath at rest. Onset: The symptoms/episode began/occurred mh7 today. Duration: The symptoms are continuous, and are unchanged since they started. The patient's shortness of breath is aggravated by nothing, is alleviated by nebulizer treatment. Associated signs and symptoms: Pertinent negatives: chest pain, non-productive cough, productive cough, diaphoresis, dizziness, fever, hemoptysis, loss of consciousness, nausea, numbness in extremities, visual changes, vomiting. Severity of symptoms: At their worst the symptoms were moderate today, in the emergency department the symptoms have improved moderately. Historical: - Allergies: 03:00 Codeine; rr5 03:00 Iodine; rr5 03:00 Sulfa (Sulfonamide Antibiotics); rr5 07:17 Latex, Natural Rubber; rr5 - Home Meds: 03:00 losartan 100 mg Oral tab 1 tab once daily [Active]; oxybutynin chloride 10 mg Oral tr24 rr5 1 tab once daily [Active]; Meclizine Oral [Active]; potassium chloride 10 mEq Oral cpER 1 cap once daily [Active]; amlodipine oral [Active]; gabapentin oral oral [Active]; Aspirin Oral [Active]; Methocarbamol Oral [Active]; Tramadol Oral [Active]; - PMHx: 03:00 Hypertension; COPD; rr5 03:45 Pneumothorax; lung cancer; aortic stenosis; rr5 - PSHx: 03:45 Appendectomy; Cholecystectomy; peripheral stents; rr5 - Immunization history:: Adult Immunizations up to date. - Social history:: Smoking status: Patient/guardian denies using tobacco, Patient/guardian denies using alcohol, street drugs. ROS: 03:04 Constitutional: Negative for fever, chills, and weight loss, Eyes: Negative for injury, mh7 pain, redness, and discharge, ENT: Negative for injury, pain, and discharge, Neck: Negative for injury, pain, and swelling, Cardiovascular: Negative for chest pain, palpitations, and edema, Abdomen/GI: Negative for abdominal pain, nausea, vomiting, diarrhea, and constipation, Back: Negative for injury and pain, : Negative for injury, bleeding, discharge, and swelling, MS/Extremity: Negative for injury and deformity, Skin: Negative for injury, rash, and discoloration, Neuro: Negative for headache, weakness, numbness, tingling, and seizure, Psych: Negative for depression, anxiety, suicide ideation, homicidal ideation, and hallucinations, Allergy/Immunology: Negative for hives, rash, and allergies, Endocrine: Negative for neck swelling, polydipsia, polyuria, polyphagia, and marked weight changes, Hematologic/Lymphatic: Negative for swollen nodes, abnormal bleeding, and unusual bruising. Exam: 03:04 Head/Face: Normocephalic, atraumatic. Eyes: Pupils equal round and reactive to light, mh7 extra-ocular motions intact. Lids and lashes normal. Conjunctiva and sclera are non-icteric and not injected. Cornea within normal limits. Periorbital areas with no swelling, redness, or edema. Neck: Trachea midline, no thyromegaly or masses palpated, and no cervical lymphadenopathy. Supple, full range of motion without nuchal rigidity, or vertebral point tenderness. No Meningismus. Chest/axilla: Normal chest wall appearance and motion. Nontender with no deformity. No lesions are appreciated. 03:04 Abdomen/GI: Soft, non-tender, with normal bowel sounds. No distension or tympany. No guarding or rebound. No evidence of tenderness throughout. Back: No spinal tenderness. No costovertebral tenderness. Full range of motion. Skin: Warm, dry with normal turgor. Normal color with no rashes, no lesions, and no evidence of cellulitis. MS/ Extremity: Pulses equal, no cyanosis. Neurovascular intact. Full, normal range of motion. Neuro: Awake and alert, GCS 15, oriented to person, place, time, and situation. Cranial nerves II-XII grossly intact. Motor strength 5/5 in all extremities. Sensory grossly intact. Cerebellar exam normal. Normal gait. Psych: Awake, alert, with orientation to person, place and time. Behavior, mood, and affect are within normal limits. 03:04 Constitutional: The patient appears alert, awake, in obvious distress, moderately distressed. 03:04 Cardiovascular: Rate: tachycardic, Rhythm: regular, Pulses: no pulse deficits are appreciated, Heart sounds: normal, normal S1and S2, Edema: is not appreciated, JVD: is not appreciated. 03:04 Respiratory: moderate respiratory distress is noted, Respirations: prolonged exhalation, that is moderate, Breath sounds: rhonchi, that are moderate, are heard diffusely, wheezing: expiratory that is moderate, is heard diffusely, Respiratory rate: 20 Vital Signs: 02:50 BP 206 / 111; Pulse 131; Resp 20; Temp 97.6; Pulse Ox 100% ; Weight 55.79 kg; Height 5 rr5 ft. 3 in. (160.02 cm); Pain 0/10; 03:43 BP 134 / 61; Pulse 84; Resp 19; Pulse Ox 96% on 35% BiPAP; rr5 04:50 BP 110 / 56; Pulse 79; Resp 18; Pulse Ox 97% on 35% BiPAP; rr5 06:00 BP 134 / 65; Pulse 84; Resp 20; Pulse Ox 96% on 30% BiPAP; rr5 07:30 BP 110 / 67; Pulse 79; Resp 21; Pulse Ox 96% on 30% BiPAP; sv 08:03 Pulse Ox 96% 4 lpm ; sv 08:20 BP 126 / 62; Pulse 83; Resp 21; Pulse Ox 96% on 4 lpm NC; sv 09:30 BP 136 / 62; Pulse 85; Resp 16; Pulse Ox 97% on 4 lpm NC; sv 10:15 BP 128 / 66; Pulse 87; Resp 18; Pulse Ox 97% on 4 lpm NC; sv 02:50 Body Mass Index 21.79 (55.79 kg, 160.02 cm) rr5 MDM: 06:51 Differential diagnosis: Anemia Anxiety Reaction asthma, Bronchitis CHF exacerbation, mh7 Chronic Obstructive Pulmonary Disease Myocardial Infarction pneumonia, pulmonary edema. Data reviewed: vital signs, nurses notes, EMS record, lab test result(s), cardiac enzymes, CBC, electrolytes, EKG, radiologic studies, plain films. Data interpreted: Pulse oximetry: on BiPAP is 100 %. Interpretation: acceptable. Counseling: I had a detailed discussion with the patient and/or guardian regarding: the historical points, exam findings, and any diagnostic results supporting the discharge/admit diagnosis, lab results, radiology results, the need to transfer to another facility, Patient/Family request. Response to treatment: the patient's symptoms have markedly improved after treatment. 06:54 Patient medically screened. [facility] 03/18 02:48 Order name: Basic Metabolic Panel [facility] 03/18 02:48 Order name: CBC with Diff; Complete Time: 03:59 [facility] 03/18 02:48 Order name: LFT's; Complete Time: 04:11 [facility] 03/18 02:48 Order name: Magnesium; Complete Time: 04:11 [facility] 03/18 02:48 Order name: NT PRO-BNP; Complete Time: 04:11 [facility] 03/18 02:48 Order name: PT-INR; Complete Time: 04:11 [facility] 03/18 02:48 Order name: Troponin (emerg Dept Use Only); Complete Time: 04:11 [facility] 03/18 02:48 Order name: XRAY Chest (1 view) [facility] 03/18 02:48 Order name: Basic Metabolic Panel; Complete Time: 04:11 [facility] 03/18 04:43 Order name: BIPAP la1 03/18 05:03 Order name: CT Chest Wo Con [facility] 03/18 06:01 Order name: Urine Dipstick-Ancillary; Complete Time: 06:11 [facility] 03/18 06:37 Order name: SARS-COV-2 RT PCR; Complete Time: 06:55 [facility] 03/18 02:48 Order name: EKG; Complete Time: 02:48 [facility] 03/18 02:48 Order name: Cardiac monitoring; Complete Time: 02:55 [facility] 03/18 02:48 Order name: EKG - Nurse/Tech; Complete Time: 02:55 03/18 02:48 Order name: IV Saline Lock; Complete Time: 02:48 03/18 02:48 Order name: Labs collected and sent; Complete Time: 02:48 [facility] 03/18 02:48 Order name: O2 Per Protocol; Complete Time: 02:48 03/18 02:48 Order name: O2 Sat Monitoring; Complete Time: 02:48 rr5 Administered Medications: 05:28 Drug: Aspirin Chewable Tablet 162 mg Route: PO; jm8 06:36 Follow up: Response: No adverse reaction [facility] 05:28 Drug: Lasix (furosemide) 20 mg Route: IVP; Site: right forearm; jm8 06:35 Follow up: Response: No adverse reaction rr5 06:55 Drug: Rocephin (cefTRIAXone) 1 grams Route: IV; Rate: per protocol; Site: left forearm; rr5 07:14 Follow up: Response: No adverse reaction; IV Status: Completed infusion; IV Intake: [id number] 07:13 Dru mg of (Zithromax (azithromycin) 500 mg, NS 0.9% 250 ml) Route: IVPB; Infused rr5 Over: 1 hrs; Site: left forearm; 08:22 Follow up: Response: No adverse reaction; IV Status: Completed infusion; IV Intake: sv 250ml Disposition: 03/18/21 06:54 Transfer ordered to [facility]. Diagnosis are Acute combined systolic and diastolic heart failure, COPD Exacerbation. - Reason for transfer: Higher level of care. - Accepting physician is Dr. Fowler. - Condition is Stable. - Problem is an acute exacerbation. - Symptoms have improved. Signatures: Dispatcher [employer] EDWA Shreya Silveira, RN RN sv Marco Dill, VACUUM APPLICATOR OPERATOR-C VACUUM APPLICATOR OPERATOR-Cla1 Norberto Johnson RN RN rr5 Nicko Mullins MD MD mh7 Agus Clifford RN RN jm8 Corrections: (The following items were deleted from the chart) 05:10 04:56 CORONAVIRUS+MR.LAB.BRZ ordered. [facility] 11:36 06:54 03/18/2021 06:54 Transfer ordered to [facility]. Diagnosis is Acute sv combined systolic (congestive) and diastolic (congestive) heart failure; COPD Exacerbation. Reason for transfer: Higher level of care. Accepting physician is Dr. Fowler. Condition is Stable. Problem is an acute exacerbation. Symptoms have improved. mh7
[2021-03-18] MEDS ORDERED: AZITHROMYCIN 500 MG INJ IVPB ONE (07:19)
[2021-03-18] MEDS ORDERED: NA CHLORIDE 0.9% 250 ML ONE (07:19)
[2021-03-18] MEDS ORDERED: CEFTRIAXONE/SWI 1gm 1 GM/10 ML SYR ONE (07:19)
--- NOTE | 2021-03-18 09:15 | RAD REPORT ---
EXAM DESCRIPTION: RAD - Chest Single View - 03/18/2021 3:41 am CLINICAL HISTORY: COPD Chest pain. COMPARISON: Chest Pa And Lat (2 Views) dated 05/18/2019; Chest Pa And Lat (2 Views) dated 01/05/2018; CHEST PA AND LAT 2 VIEW dated 02/02/2015; ABDOMEN 1 VIEW KUB dated 04/26/2014; Thorax Wo Con dated 2020; Thorax Wo Con dated 11/26/2020 FINDINGS: Portable technique limits examination quality. Prominent interstitial opacities are present throughout the lungs. Irregular opacity is present in th e right mid lung, progressive since comparative chest radiographs. The heart is upper limit normal in size. No displaced fractures.
[2021-03-18 12:00] VITALS: TEMP 97.6
[2021-03-18 12:12] VITALS: O2SAT 97
[2021-03-18 12:14] VITALS: BP 128/66
--- NOTE | 2021-03-18 13:46 | RAD REPORT ---
EXAM DESCRIPTION: CT Chest Without Intravenous Contrast CLINICAL HISTORY: Shortness of breath TECHNIQUE: Axial computed tomography images of the chest without intravenous contrast. Sagittal an d coronal reformatted images were created and reviewed. This CT exam was performed using one or mor e of the following dose reduction techniques: automated exposure control, adjustment of the mA and/ or kV according to patient size, and/or use of iterative reconstruction technique. COMPARISON: 11/26/2020 FINDINGS: Limitations: None. Lungs: There is marked centrilobular emphysema. There is new consolidation in the right upper lobe. There is increasing consolidation in the right perihilum with stable associated bronchiectasi s. Central airway calcification noted. New pleural-based nodular opacities noted in the anterior left upper lobe image . The re is new dependent consolidation along each effusion. Pleural space: Small layering bilateral pleural effusions now present. Heart: Stable cardiomegaly. Mediastinum: No abnormality noted. Thyroid: No abnormality noted. Bones/joints: Since the previous examination there is now marked compression fracture of T7 with significant height loss. There is minimal retropulsion of about 3 mm. Soft tissues: Visualized portions appear normal. Vasculature: Dense atherosclerosis of the aorta particularly in the upper abdomen and of intrath oracic and upper abdominal aortic branches including the coronaries. No thoracic aortic aneurysm. Lymph nodes: No enlarged lymph nodes. Upper abdomen: Visualized portions appear normal. IMPRESSION: 1. New bilateral pleural effusions and new right upper lobe and worsening right perihi lar pneumonia. There is consolidation adjacent to both pleural effusions in the base which could be atelectasis or pneumonia. 2. New severe compression deformity of T7 since 11/27/2019. Electronically signed by: Kinza Alvarez MD 03/18/2021 6:22 AM CDT Due to temporary technical issues with the PACS/Fluency reporting system, reports are being signed by the in house radiologist without review as a courtesy to ensure prompt reporting. The interpreting r adiologist is fully responsible for the content of the report.
--- NOTE | 2021-03-18 15:48 | EKG ---
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
== END 2021-03-18 11:36 | disposition short-term general hospital (02) ==
LOC: ER 02:40
DX: I50.41 Acute combined systolic (congestive) and diastolic (congestive) heart failure (principal); J44.1 Chronic obstructive pulmonary disease with (acute) exacerbation; I10 Essential (primary) hypertension; Z88.2 Allergy status to sulfonamides; Z88.5 Allergy status to narcotic agent; Z20.822 Contact with and (suspected) exposure to COVID-19; Z85.118 Personal history of other malignant neoplasm of bronchus and lung; Z91.040 Latex allergy status; Z91.048 Other nonmedicinal substance allergy status
CPT/HCPCS: 93005; 85025; 80048; 36415; 83735; 85610; 80076; 81003; 84484; 83880; 71250; 71045; 94660; U0003; J1940; J0456; J0696; J7050; 96365; 96375; 99285